=== PATIENT | female | born 1955 | race Asian ===

== ENCOUNTER 2017-10-02 22:27 | Emergency (ER) | payer BC ==
[2017-10-02 22:32] VITALS: RESP 18
[2017-10-02] MEDS ORDERED: SODIUM CHLORIDE 0.9% 500 ML IV STA (22:47)
[2017-10-02] MEDS ORDERED: MORPHINE SULFATE/PF 10MG/10ML VL IVP STA (22:47)
[2017-10-02] MEDS ORDERED: ONDANSETRON 4 MG/2 ML VIAL IVP STA (22:47)
--- NOTE | 2017-10-02 22:52 | ED ---
Abdominal Pain HPI - General Chief Complaint: Abdominal Pain Stated Complaint: Abd pain Time Seen by Provider: 10/02/17 22:36 Source: patient Mode of arrival: ambulatory Limitations: no limitations - History of Present Illness Initial Comments: 61-year-old female patient presents to the emergency department today for evaluation of upper abdominal pain that started earlier today. Patient states pain has been worsening as the day has progressed. She states the pain is a sharp cramping like pain that does radiate into her back. She denies any nausea or vomiting with this. She denies any constipation or diarrhea. Patient states she did have a bowel movement this morning that was normal for her. Patient denies any history of similar symptoms. Denies any history of abdominal surgeries. States that she does have a history of diabetes and does take oral medication for this. She denies any fevers or chills. Patient denies any recent rash, shortness breath, chest pain, numbness, tingling, dizziness, weakness, hematuria, dysuria, urinary urgency, urinary frequency, headache, visual changes, or any other complaints. - Related Data Home Medications Medication Instructions Recorded Confirmed Calcium Carbonate [Calcium] 600 mg PO DAILY 10/02/17 10/02/17 Cholecalciferol [Vitamin D3] 1,000 unit PO DAILY 10/02/17 10/02/17 Glimepiride [Amaryl] 2 mg PO AC-[id number] 10/02/17 10/02/17 Insulin Detemir [Levemir Flextouch] 62 units SQ HS 10/02/17 10/02/17 Lisinopril [Zestril] 5 mg PO DAILY 10/02/17 10/02/17 Multivitamins, Thera [Multivitamin 1 tab PO DAILY 10/02/17 10/02/17 (formulary)] Simvastatin [Zocor] 40 mg PO DAILY 10/02/17 10/02/17 sitaGLIPtin [Januvia] 50 mg PO DAILY 10/02/17 10/02/17 Allergies Allergy/AdvReac Type Severity Reaction Status Date / Time No Known Allergies Allergy Verified 10/02/17 23:12 Review of Systems ROS Statement: Those systems with pertinent positive or pertinent negative responses have been documented in the HPI. ROS Other: All systems not noted in ROS Statement are negative. Past Medical History Past Medical History: Diabetes Mellitus, Hyperlipidemia, Hypertension Additional Past Medical History / Comment(s): menigitis History of Any Multi-Drug Resistant Organisms: None Reported Past Surgical History: No Surgical Hx Reported Past Psychological History: No Psychological Hx Reported Smoking Status: Former smoker Past Alcohol Use History: None Reported Past Drug Use History: None Reported General Exam Limitations: no limitations General appearance: alert, in no apparent distress, other (This is a well- developed, well-nourished adult female patient in no acute distress. Vital signs upon presentation are temperature 97.0F, pulse 68, respirations 18, blood pressure 196/84, pulse ox 98% on room air.) Eye exam: Present: normal appearance, PERRL, EOMI. Absent: scleral icterus, conjunctival injection, periorbital swelling ENT exam: Present: normal exam, normal oropharynx, mucous membranes moist Respiratory exam: Present: normal lung sounds bilaterally. Absent: respiratory distress, wheezes, rales, rhonchi, stridor Cardiovascular Exam: Present: regular rate, normal rhythm, normal heart sounds. Absent: systolic murmur, diastolic murmur, rubs, gallop, clicks GI/Abdominal exam: Present: soft, tenderness (Upper abdominal tenderness.), normal bowel sounds. Absent: distended, guarding, rebound, rigid Neurological exam: Present: alert, oriented X3, CN II-XII intact Psychiatric exam: Present: normal affect, normal mood Skin exam: Present: warm, dry, intact, normal color. Absent: rash Course Vital Signs 10/02/17 22:30 Temperature 97 F L Pulse Rate 68 Respiratory 18 Rate Blood Pressure 196/84 O2 Sat by Pulse 98 Oximetry Medical Decision Making - Medical Decision Making 61-year-old female patient presented to the emergency department today for evaluation of upper abdominal pain that radiated into her back. Physical examination is unremarkable. Patient had some mild upper abdominal tenderness. Labs reviewed and are unremarkable. EKG showed normal sinus rhythm. Abdominal x-ray showed overall nonobstructive bowel gas pattern. CT the abdomen and pelvis with contrast was obtained and showed a small calcified gallstone and fatty infiltration of the liver but no other acute intra- abdominal processes. Patient is feeling much better upon reevaluation. She denies any current pain. We did discuss all results.We did discuss follow-up with surgery. Return parameters discussed in detail. She verbalizes understanding and agrees the plan. - Lab Data Result diagrams: 10/02/17 23:02 10/02/17 23:02 Lab Results 10/02/17 10/02/17 10/03/17 Range/Units 23:02 23:02 00:01 WBC 10.5 (3.8-10.6) k/uL RBC 4.48 (3.80-5.40) m/uL Hgb 13.7 (11.4-16.0) gm/dL Hct 39.7 (34.0-46.0) % MCV 88.6 (80.0-100.0) fL MCH 30.5 (25.0-35.0) pg MCHC 34.5 (31.0-37.0) g/dL RDW 12.2 (11.5-15.5) % Plt Count 177 (150-450) k/uL Neutrophils % 62 % Lymphocytes % 29 % Monocytes % 6 % Eosinophils % 2 % Basophils % 0 % Neutrophils # 6.5 (1.3-7.7) k/uL Lymphocytes # 3.0 (1.0-4.8) k/uL Monocytes # 0.6 (0-1.0) k/uL Eosinophils # 0.2 (0-0.7) k/uL Basophils # 0.0 (0-0.2) k/uL Sodium 143 (137-145) mmol/L Potassium 4.0 (3.5-5.1) mmol/L Chloride 104 (98-107) mmol/L Carbon Dioxide 25 (22-30) mmol/L Anion Gap 14 mmol/L BUN 27 H (7-17) mg/dL Creatinine 0.50 L (0.52-1.04) mg/dL Est GFR (CKD-EPI)AfAm >90 (>60 ml/min/1.73 sqM) Est GFR (CKD-EPI)NonAf >90 (>60 ml/min/1.73 sqM) Glucose 134 H (74-99) mg/dL Calcium 9.9 (8.4-10.2) mg/dL Total Bilirubin 0.6 (0.2-1.3) mg/dL AST 23 (14-36) U/L ALT 33 (9-52) U/L Alkaline Phosphatase 92 (38-126) U/L Total Protein 7.1 (6.3-8.2) g/dL Albumin 4.3 (3.5-5.0) g/dL Amylase 77 (30-110) U/L Lipase 143 (23-300) U/L Urine Color Yellow Urine Appearance Clear (Clear) Urine pH 5.5 (5.0-8.0) Ur Specific [place] 1.020 (1.001-1.035) Urine Protein Negative (Negative) Urine Glucose (UA) 1+ H (Negative) Urine Ketones Negative (Negative) Urine Blood Negative (Negative) Urine Nitrite Negative (Negative) Urine Bilirubin Negative (Negative) Urine Urobilinogen <2.0 (<2.0) mg/dL Ur Leukocyte Esterase Trace H (Negative) Urine RBC <1 (0-5) /hpf Urine WBC 4 (0-5) /hpf Urine Mucus Rare H (None) /hpf - EKG Data -: EKG Interpreted by Id EKG Comments: EKG obtained at 2304 shows normal sinus rhythm with a left axis deviation. Ventricular rate is 68, OH interval 150, QRS duration 82, QTc 412, QTC 438. - Radiology Data Radiology results: report reviewed, image reviewed Two-view x-ray of the abdomen shows no sign of intestinal obstruction or pneumoperitoneum. Fecal pattern is normal. Lung bases are clear. There is no pathologic calcifications over the kidneys. Impression by Dr. Chi shows nonacute abdomen. CT of the abdomen and pelvis with contrast was obtained. Report was reviewed in its entirety. Impression by Dr. Chi shows no sign of appendicitis. No renal stone or obstruction. Small calcified gallstone. Disposition Clinical Impression: Gallstone, Upper abdominal pain Disposition: HOME SELF-CARE Condition: Good Instructions: Gallstones (ED), Abdominal Pain (ED) Additional Instructions: Follow-up with surgeon for further evaluation. Follow-up through primary care physician for recheck in 1-2 days. Return here immediately for any new, worsening, or concerning symptoms. Referrals: Chi Gutierrez MD [Primary Care Provider] - 1-2 days Miladis Medrano DO [Doctor of Osteopathic Medicine] - 1-2 days Time of Disposition: 00:53
[2017-10-02 23:15] LABS: Basophils % (A) 0 %; Eosinophils # (A) 0.2 k/uL (0-0.7); Eosinophils % (A) 2 %; HCT 39.7 % (34.0-46.0); HGB 13.7 gm/dL (11.4-16.0); Lymphocytes % (A) 29 %; MCH 30.5 pg (25.0-35.0); MCHC 34.5 g/dL (31.0-37.0); MCV 88.6 fL (80.0-100.0); Mean Platelet Volume 7.3; Monocytes # (A) 0.6 k/uL (0-1.0); Monocytes % (A) 6 %; Neutrophils # (A) 6.5 k/uL (1.3-7.7); Neutrophils % (A) 62 %; Platelet Count 177 k/uL (150-450); RBC 4.48 m/uL (3.80-5.40); RDW 12.2 % (11.5-15.5); WBC 10.5 k/uL (3.8-10.6)
[2017-10-02 23:23] LABS: ALT 33 U/L (9-52); AST 23 U/L (14-36); Albumin 4.3 g/dL (3.5-5.0); Alkaline Phosphatase 92 U/L (38-126); Amylase 77 U/L (30-110); Anion Gap 14 mmol/L; Blood Urea Nitrogen 27 mg/dL (7-17); Calcium 9.9 mg/dL (8.4-10.2); Carbon Dioxide 25 mmol/L (22-30); Chloride 104 mmol/L (98-107); Glucose 134 mg/dL (74-99); Lipase 143 U/L (23-300); Sodium 143 mmol/L (137-145); Total Bilirubin 0.6 mg/dL (0.2-1.3); Total Protein 7.1 g/dL (6.3-8.2)
[2017-10-02] MEDS ORDERED: RX INFO: IV CONTRAST WAS GIVEN 1 EACH MISC MISCELLANE PRN (23:59)
--- NOTE | 2017-10-03 00:03 | XR ---
EXAMINATION TYPE: XR KUB DATE OF EXAM: 10/02/2017 COMPARISON: NONE HISTORY: Abdominal pain TECHNIQUE: 2 views FINDINGS: There is no sign of intestinal obstruction or pneumoperitoneum. Fecal pattern is normal. Giuliana ng bases are clear. There are no pathologic calcifications over the kidneys. IMPRESSION: Nonacute abdomen.
--- NOTE | 2017-10-03 00:42 | CT ---
EXAMINATION TYPE: CT abdomen pelvis w con DATE OF EXAM: 10/03/2017 COMPARISON: NONE HISTORY: abdominal pain CT DLP: 455.80 mGycm Automated exposure control for dose reduction was used. TECHNIQUE: Helical acquisition of images was performed from the lung bases through the pelvis. CONTRAST: Performed without Oral Contrast and with IV Contrast, patient injected with 100 mL of Isovue 300. FINDINGS: Lung bases are clear. There is no pleural effusion. Heart size is normal. There is mild decreased density in the liver consistent with some mild fatty infiltration. Gallbladde r shows a single 7 mm calcified gallstone. Bile ducts are not dilated. Gallbladder measures 3.5 cm in diameter. Spleen appears normal. There is no pancreatic mass. There is no adrenal mass. Kidneys show satisfactory contrast opacification. There is no hydronephrosi s. There is air-filled appendix. There is no retroperitoneal adenopathy. There is no ascites. Uterus is retroverted. There are varicose veins in the left and right adnexal region. Bladder distends smoothly. There is no evidence of a pelvic mass. I see no intestinal wall thickening. There are no dilated loops. IMPRESSION: NO SIGN OF APPENDICITIS. NO RENAL STONE OR OBSTRUCTION. SMALL CALCIFIED GALLSTONE. BILATERAL OVARIAN VEIN VARICOSITIES. MILD FATTY INFILTRATION OF THE LIVER.
[2017-10-03 00:47] LABS: Appearance,Urine Clear (Clear); Bilirubin,Urine Negative (Negative); Blood,Urine Negative (Negative); Color,Urine Yellow; Glucose,Urine (UA) 1+ (Negative); Ketones,Urine Negative (Negative); Leukocyte Esterase,Urine Trace (Negative); Mucus,Urine Rare /hpf; Nitrite,Urine Negative (Negative); PH, Urine 5.5 (5.0-8.0); Protein,Urine Negative (Negative); RBC,Urine <1 /hpf (0-5); Urobilinogen,Urine <2.0 mg/dL (<2.0); WBC,Urine 4 /hpf (0-5)
[2017-10-03 01:06] VITALS: BP 157/79; PULSE 73; TEMP 97.1
== END 2017-10-03 01:05 | disposition home or self-care (01) ==
LOC: EC 22:27
DX: K80.20 Calculus of gallbladder without cholecystitis without obstruction (principal); E11.9 Type 2 diabetes mellitus without complications; E78.5 Hyperlipidemia, unspecified; I10 Essential (primary) hypertension; Z87.891 Personal history of nicotine dependence; Z79.4 Long term (current) use of insulin; Z79.899 Other long term (current) drug therapy
CPT/HCPCS: 36415; 93005; 80053; 82150; 83690; 85025; 74018; 99284; 96374; 96375; 96361; J2405; J2270; 74177; 81001

== ENCOUNTER 2017-11-06 06:56 | Day surgery (SDC) | payer BC ==
[2017-11-05 12:23] VITALS: BMI 23.8
[~2017-11-06 06:56] MED LIST: DEXAMETHASONE SOD PHOSPHATE 10 MG/ML 1 ML VIAL IV ONE; HEPARIN SODIUM,PORCINE 5,000 UNIT/ML 1 ML VIAL SQ ONE; LACTATED RINGERS 1,000 ML IV SCH; LIDOCAINE 1% 20 ML VIAL (10MG/ML) FOR IV START INTRADERMA PRN; MORPHINE SULFATE 2 MG/ML SYRINGE IV PRN; ONDANSETRON ODT 4 MG TAB PO ONE; SCOPOLAMINE 1.5MG/72HR PATCH TRANSDERM ONE; ceFAZolin IN SWFI 2 GM/20 ML SYRINGE IVP ONE
[2017-11-06] MEDS ORDERED: ONDANSETRON 4 MG/2 ML VIAL IVP ONE (07:50)
--- NOTE | 2017-11-06 08:04 | P.GSHP ---
History of Present Illness H&P Date: 11/06/17 Chief Complaint: Right upper quadrant pain This a 61-year-old female referred from Dr. Gutierrez. Patient had complaints of right quadrant pain. Her recent ultrasound shows evidence of cholelithiasis. She presents today for laparoscopic cholecystectomy. Past Medical History Past Medical History: Diabetes Mellitus, Hyperlipidemia, Hypertension Additional Past Medical History / Comment(s): menigitis History of Any Multi-Drug Resistant Organisms: None Reported Past Surgical History: No Surgical Hx Reported Past Anesthesia/Blood Transfusion Reactions: No Reported Reaction Additional Past Anesthesia/Blood Transfusion Reaction / Comment(s): FIRST ANESTHETIC Past Psychological History: No Psychological Hx Reported Smoking Status: Former smoker Past Alcohol Use History: None Reported Additional Past Alcohol Use History / Comment(s): SMOKED A TEENAGER SMOKED 5 YEARS LESS THAN PACK PER WEEK Past Drug Use History: None Reported - Past Family History Mother Family Medical History: Cancer Father Family Medical History: Cancer Medications and Allergies Home Medications Medication Instructions Recorded Confirmed Type Calcium Carbonate [Calcium] 600 mg PO DAILY 10/02/17 11/05/17 History Cholecalciferol [Vitamin D3] 1,000 unit PO DAILY 10/02/17 11/05/17 History Insulin Detemir [Levemir Flextouch] 62 units SQ HS 10/02/17 11/05/17 History Lisinopril [Zestril] 5 mg PO DAILY 10/02/17 11/05/17 History Multivitamins, Thera [Multivitamin 1 tab PO DAILY 10/02/17 11/05/17 History (formulary)] Simvastatin [Zocor] 40 mg PO DAILY 10/02/17 11/05/17 History sitaGLIPtin [Januvia] 100 mg PO DAILY 10/02/17 11/05/17 History Empagliflozin [Jardiance] 10 mg PO DAILY 11/05/17 11/05/17 History Ezetimibe 10 mg PO DAILY 11/05/17 11/05/17 History Allergies Allergy/AdvReac Type Severity Reaction Status Date / Time No Known Allergies Allergy Verified 11/05/17 12:15 Surgical - Exam - General well developed, no distress - Eyes PERRL - ENT normal pinna - Neck no masses - Respiratory normal expansion - Cardiovascular Rhythm: regular - Abdomen Abdomen: soft, non tender Assessment and Plan Assessment: Chronic cholecystitis Cholelithiasis We'll perform laparoscopic cholecystectomy.
[2017-11-06 08:13] LABS: Glucose,Whole Blood 120 mg/dL (75-99)
[2017-11-06] MEDS ORDERED: NEOSTIGMINE 1 MG/ML 10 ML VIAL ONE (08:14)
[2017-11-06] MEDS ORDERED: KETOROLAC 30 MG/ML 1 ML VIAL ONE (08:14)
[2017-11-06] MEDS ORDERED: fentaNYL (PF) 50 MCG/ML 2 ML AMP ONE (08:14)
[2017-11-06] MEDS ORDERED: SUCCINYLCHOLINE CHLORIDE 100 MG/5 ML SYR IV ONE (08:14)
[2017-11-06] MEDS ORDERED: ROCURONIUM BROMIDE 10 MG/ML 10 ML VIAL IV ONE (08:14)
[2017-11-06] MEDS ORDERED: MIDAZOLAM 2 MG/2 ML VIAL ONE (08:14)
[2017-11-06] MEDS ORDERED: GLYCOPYRROLATE 0.2 MG/ML 2 ML VIAL ONE (08:14)
[2017-11-06] MEDS ORDERED: PROPOFOL 10 MG/ML 20 ML VIAL IV ONE (08:14)
[2017-11-06] MEDS ORDERED: LIDOCAINE 1% INJ 10MG/ML (20 ML MDV) ONE (08:14)
[2017-11-06] MEDS ORDERED: BUPIVACAINE (PF) 0.25% 30 ML VIAL SQ ONE (08:36)
[2017-11-06] MEDS ORDERED: LACTATED RINGERS 1,000 ML IV ONE (08:50)
--- NOTE | 2017-11-06 08:54 | P.OP ---
Date of Procedure: 11/06/17 Preoperative Diagnosis: Cholecystitis Postoperative Diagnosis: Cholecystitis Procedure(s) Performed: Laparoscopic cholecystectomy Anesthesia: DELBERT Surgeon: Marvin Whitten Estimated Blood Loss (ml): 5 Pathology: other (Gallbladder) Condition: stable Disposition: PACU Description of Procedure: The patient was placed on the operating table. The patient received a general endotracheal tube anesthesia. The patients abdomen was prepped and draped in the usual sterile fashion. Through an infraumbilical stab incision, the fascia of the anterior abdominal wall was grasped with a pair of Kochers and then the Veress needle was placed in the peritoneal cavity. Position of the Veress needle was confirmed with positive drop test. The abdomen was then insufflated. After adequate insufflation, the 10 mm trocar was placed in the peritoneal cavity. Following this the laparoscope was placed in the peritoneal cavity. The patient was placed in the head-up, right side up position and then a 5 mm trocar was placed in the right lateral and right subcostal position under direct visualization. A 8 mm trocar was placed in the epigastric position. The gallbladder was grasped in the fundus and infundibulum. Traction on the gallbladder was placed in the lateral and the cephalad positions. The triangle of Calot was visualized.. The cystic duct was bluntly dissected until the union of the cystic duct and common bile duct was seen. The cystic duct was then divided and sealed with the Harmonic scissors. A PDS Endoloop was then placed throughout the cystic duct stump. The cystic artery divided and sealed with the Harmonic scissors. The gallbladder was then removed from the liver bed using Harmonic scissors. The gallbladder was then extracted through the epigastric port site. Operative field was checked for any bleeding spots and Harmonic scissors was used to coagulate the liver bed. The abdomen was irrigated. The trocars were removed. The skin was closed using interrupted 3-0 Vicryl suture. Dermabond dressing were applied. The patient tolerated the procedure well.
[2017-11-06 09:17] VITALS: TEMP 96.8
[2017-11-06 09:38] LABS: Glucose,Whole Blood 113 mg/dL (75-99)
[2017-11-06 10:18] VITALS: RESP 16
[2017-11-06 11:14] VITALS: BP 132/71; PULSE 68
== END 2017-11-06 11:55 | disposition home or self-care (01) ==
LOC: OR 06:56
PROVIDERS: ATTEND Surgery
DX: K80.10 Calculus of gallbladder with chronic cholecystitis without obstruction (principal); E11.9 Type 2 diabetes mellitus without complications; E78.5 Hyperlipidemia, unspecified; I10 Essential (primary) hypertension; Z79.4 Long term (current) use of insulin; Z79.899 Other long term (current) drug therapy; Z87.891 Personal history of nicotine dependence
CPT/HCPCS: 88304; 47562; J2250; J1644; J1100; J2710; J2405; J2001; J3010; J1885; J0330; J2704; J0690

== ENCOUNTER → 2020-09-07 | Outpatient (CLI) | payer MEDICARE ==
--- NOTE | 2020-09-07 17:29 | BD ---
EXAMINATION TYPE: Axial Bone Density DATE OF EXAM: 09/07/2020 COMPARISON: 08/14/2009 CLINICAL HISTORY: Postmenopausal screening Height: 60.5 Weight: 133.6 FRAX RISK QUESTIONS: Alcohol (3 or more units per day): no Family History (Parent hip fracture): no Glucocorticoids (More than 3mos): no (Ex: prednisone, prednisolone, methylprednisolone, dexamethasone, and hydrocortisone). History of Fracture in Adulthood: yes Secondary Osteoporosis: 1. Type 1 Diabetes: no 2. Hyperthyroidism: no 3. Menopause before 45: no 4. Malnutrition: no 5. Chronic liver disease: no Rheumatoid Arthritis: no Current Tobacco Use: no RISK FACTORS HISTORY OF: Surgery to Spine/Hip(right/left)/Wrist (right/left): no Family History of Osteoporosis: no Active: yes Diet low in dairy products/other sources of calcium: yes Postmenopausal woman: age 58 Lost more than 2 inches in height since high school: no MEDICATIONS: scanned into pacs Additional History: EXAM MEASUREMENTS: Bone mineral densitometry was performed using the [employer] System. Bone mineral density as measured about the Lumbar spine is: ----- L1-L4(G/cm2): 1.025 T Score Values are as follows: ----- L2: -2.2 ----- L3: -1.0 ----- L4: -0.9 ----- L1-L4: -1.3 Bone mineral density has: increased 4.9 % since study of: 06.13.2010 Bone mineral density about the R hip (g/cm2): 0.773 Bone mineral density about the L hip (g/cm2): 0.873 T Score values are as follows: -----R Neck: -1.9 -----L Neck: -1.2 -----R Total: -1.3 -----L Total: -0.9 Bone mineral density has: decreased -3.6 % since study of: 06.13.2010 IMPRESSION: Osteopenia (T Score between -2.5 and -1). There is slightly increased risk of fracture and the patient may be considered for treatment. Re-Screen 2-5 years. NOTE: T-SCORE=SD OF THE YOUNG ADULT MEAN.
== END ==
LOC: RADBDWWP 07:58
PROVIDERS: ATTEND Family Medicine
DX: Z13.820 Encounter for screening for osteoporosis (principal); Z78.0 Asymptomatic menopausal state
CPT/HCPCS: 77080

== ENCOUNTER → 2023-06-26 | Outpatient (CLI) | payer MEDICARE, OTHER ==
--- NOTE | 2023-06-26 08:08 | US ---
EXAMINATION TYPE: US carotid duplex BILAT DATE OF EXAM: 06/26/2023 COMPARISON: NONE CLINICAL INDICATION: Female, 67 years old with history of I65.29 OCCLUSION AND STENOSIS OF UNSPECIFIE D CAROT; Prior smoker, hypertension, hyperlipidemia, diabetes. TECHNIQUE: Carotid duplex ultrasound examination. Indirect Doppler criteria was utilized. FINDINGS: EXAM MEASUREMENTS: RIGHT: Peak Systolic Velocity (PSV) cm/sec ----- Right CCA: 83.1 ----- Right ICA: 91.9 ----- Right ECA: 81.2 ICA/CCA ratio: 1.1 RIGHT: End Diastole cm/sec ----- Right CCA: 22.6 ----- Right ICA: 39.1 ----- Right ECA: 0.0 LEFT: Peak Systolic Velocity (PSV) cm/sec ----- Left CCA: 61.6 ----- Left ICA: Possible minimal flow seen, bulb measures 29.5 ----- Left ECA: 109.5 ICA/CCA ratio: 0.5- bulb as measurement LEFT: End Diastole cm/sec ----- Left CCA: 0.0 ----- Left ICA: 0.0 ----- Left ECA: 9.8 VERTEBRALS (direction of flow): Right Vertebral: Antegrade Left Vertebral: Antegrade Rhythm: Normal FAMILY REUNIFICATION SPECIALIST NOTES: Possible minimal blood flow seen after left bulb in left ICA. Minimal arterial signal seen within left ICA versus artifact from other artery. IMPRESSION: High-grade stenosis left proximal ICA difficult to exclude. CTA recommended for further evaluation. Criteria for Assigning % of Stenosis / Diameter reduction (Estimation based on the indirect measurements of the internal carotid artery velocities (ICA PSV). 1. Normal (no stenosis)=ICA PSV < 125 cm/s: ratio < 2.0: ICA EDV<40 cm/s. 2. Less than 50% stenosis=ICA PSV < 125 cm/s: ratio < 2.0: ICA EDV<40 cm/s. 3. 50 to 69% stenosis=ICA PSV of 125 to 230 cm/s: ration 2.0 ? 4.0: ICA EDV 40-100 cm/s. 4. Greater than 70% stenosis to near occlusion= ICA PSV > 230 cm/s: ratio > 4.0: ICA EDV > 100 cm/s. 5. Near occlusion= ICA PSV velocities may be low or undetectable: variable ratio and ICA EDV. 6. Total occlusion=unable to detect flow.
[2023-06-26 09:18] LABS: African American GFR (CKD) >90 (>60 ml/min/1.73 sqM); Blood Urea Nitrogen 25 mg/dL (7-17); Non-African American GFR(CKD) >90 (>60 ml/min/1.73 sqM)
--- NOTE | 2023-06-26 11:49 | CT ---
EXAMINATION TYPE: CT angio head neck DATE OF EXAM: 06/26/2023 COMPARISON: Carotid ultrasound 06/26/2023 HISTORY: 67-year-old female [id number] Carotid stenosis. TECHNIQUE: Contiguous axial scanning of the head and neck performed with IV Contrast, patient injecte d with 65ml mL of Isovue 370. Coronal and sagittal MIP reconstructions performed. CT DLP: 1287.9 mGycm Automated exposure control for dose reduction was used. FINDINGS: NECK: Minimal emphysematous change visualized upper lungs. There is asymmetric enlargement of the left lobe of the thyroid gland, possible underlying nodule that could measure up to 2.5 cm. Dedicated thyroid ultrasound recommended to further evaluate. Mild atherosclerotic arch calcifications. Conventional arch was a branching anatomy. Mild stenosis proximal left subclavian artery. The vertebral arteries are codominant and patent throu ghout their course. NASCET criteria was utilized. The right common and right internal carotid arteries are widely patent. The left common carotid artery is patent. The left carotid bulb is patent. However, there is subtotal occlusion proximal left ICA just above th e level of the carotid bulb which short segment string sign and eventual loss of enhancement at the m id ICA. HEAD: The bilateral vertebral and basilar arteries are patent as is the remainder of the posterior circulat ion. The dural venous sinuses are patent. Right ICA is patent but with moderate atherosclerotic calcifications and moderate stenosis cavernous segment right ICA and moderate stenosis supraclinoid right ICA. Early bifurcation of the right MCA. There is reconstitution of flow within the left-sided system at the level of the carotid terminus pro bably from retrograde flow from the anterior communicating artery. No aneurysmal change is seen. IMPRESSION: NECK: 1. SUBTOTAL OCCLUSION LEFT ICA JUST ABOVE THE LEVEL OF THE CAROTID BULB. THERE IS STRING SIGN FOR A S HORT SPAN FOLLOWED BY COMPLETE LOSS OF ENHANCEMENT AT THE MID ICA. 2. MILD ATHEROSCLEROTIC STENOSIS PROXIMAL LEFT SUBCLAVIAN ARTERY. 3. NODULAR AND ENLARGED LEFT LOBE OF THE THYROID GLAND. DEDICATED THYROID ULTRASOUND TO FURTHER EVALU ATE. HEAD: 4. RECONSTITUTION OF FLOW IN THE LEFT ICA AT THE LEVEL OF THE CAROTID TERMINUS. PROBABLY FROM RETROGR RAIMUNDO FLOW FROM THE ANTERIOR COMMUNICATING ARTERY. 5. ATHEROSCLEROTIC CALCIFICATIONS RIGHT CAROTID SIPHON WITH MODERATE STENOSIS CAVERNOUS SEGMENT RIGHT ICA AND SUPRACLINOID RIGHT ICA. 6. NO ANEURYSMAL CHANGE IS SEEN.
== END | disposition home or self-care (01) ==
LOC: RADUSWWP 07:32
PROVIDERS: ATTEND Family Medicine
DX: I65.23 Occlusion and stenosis of bilateral carotid arteries (principal); I10 Essential (primary) hypertension; E78.5 Hyperlipidemia, unspecified; I77.1 Stricture of artery
CPT/HCPCS: 82565; 84520; 93880; 70496; 70498; Q9967

== ENCOUNTER → 2023-08-07 | Outpatient (CLI) | payer MEDICARE, OTHER ==
--- NOTE | 2023-08-07 10:03 | US ---
EXAMINATION TYPE: US thyroid st tissue head/neck DATE OF EXAM: 08/07/2023 COMPARISON: CTA 06/26/23 CLINICAL INDICATION: Female, 67 years old with history of E04.1 NONTOXIC SINGLE THYROID NODULE; GLAND SIZE: Right Lobe: 3.5 x 1.2 x 0.8 cm Overall Parenchyma: homogeneous Left Lobe: 5.5 x 1.9 x 1.2 cm Overall Parenchyma: heterogeneous Isthmus Thickness: 0.39 cm NODULES RIGHT: # of nodules measured on right: 0 LEFT: # of nodules measured on left: 2 1. 1.6 X 1.3 x 1.1 cm, upper , solid or almost completely solid, isoechoic nodule, which is wider t oconnor tall, with smooth margins, without echogenic foci. 2. 1.8 X 1.7 x 1.6 cm, lower , solid or almost completely solid, isoechoic nodule, which is wider than tall, with smooth margins, without echogenic foci. ISTHMUS: # of nodules measured in the isthmus: 0 Bilateral neck scanned, no evidence of lymphadenopathy. Large calcifications noted left thyroid IMPRESSION: TR3. Mildly Suspicious: FNA if ? 2.5 cm; Follow if ? 1.5 cm at 1, 3, and 5 y 2017 ACR TI-RADS LEVEL: TR3 *Highest TI-RADS level nodule reported
== END | disposition home or self-care (01) ==
LOC: RADUSWWP 09:14
PROVIDERS: ATTEND Family Medicine
DX: E04.2 Nontoxic multinodular goiter (principal)
CPT/HCPCS: 76536

== ENCOUNTER 2023-09-20 07:16 | Emergency (ER) | payer MEDICARE, OTHER ==
--- NOTE | 2023-09-20 07:51 | ED ---
General Adult HPI - General Chief complaint: Nausea/Vomiting/Diarrhea Stated complaint: Diarrhea Time Seen by Provider: 09/20/23 07:30 Source: patient, RN notes reviewed Mode of arrival: ambulatory Limitations: no limitations - History of Present Illness Initial comments: Patient is a pleasant 67-year-old female present to the emergency department with concerns for vomiting and diarrhea. Onset of symptoms was 3 to 4 days ago. Patient was vomiting a couple times per day, none today. Patient did take ODT Zofran. Patient is having diarrhea up to 2 or 3 times daily. Patient feels a little bit dehydrated and somewhat generally weak. Patient had some abdominal discomfort however none for the past couple days. No fever. - Related Data Home Medications Medication Instructions Recorded Confirmed Calcium Carbonate [Calcium] 600 mg PO DAILY 10/02/17 11/05/17 Cholecalciferol [Vitamin D3] 1,000 unit PO DAILY 10/02/17 11/05/17 Insulin Detemir [Levemir Flextouch] 62 units SQ HS 10/02/17 11/05/17 Multivitamins, Thera [Multivitamin 1 tab PO DAILY 10/02/17 11/05/17 (formulary)] Simvastatin [Zocor] 40 mg PO DAILY 10/02/17 11/05/17 lisinopriL [Zestril] 5 mg PO DAILY 10/02/17 11/05/17 sitaGLIPtin [Januvia] 100 mg PO DAILY 10/02/17 11/05/17 Empagliflozin [Jardiance] 10 mg PO DAILY 11/05/17 11/05/17 Ezetimibe 10 mg PO DAILY 11/05/17 11/05/17 Previous Rx's Medication Instructions Recorded Docusate [Colace] 100 mg PO BID #20 capsule 11/06/17 HYDROcodone/APAP 7.5-325MG [[place] 1 each PO Q4H PRN #15 tab 11/06/17 7.5] HYDROcodone/APAP 7.5-325MG [[place] 1 each PO Q4H PRN #20 tab 11/06/17 7.5] HYDROcodone/APAP 7.5-325MG [[place] 1 each PO Q4H PRN #30 tab 11/06/17 7.5] Ondansetron Odt [Zofran Odt] 4 mg PO Q8HR PRN #10 tab 09/20/23 Allergies Allergy/AdvReac Type Severity Reaction Status Date / Time No Known Allergies Allergy Verified 11/05/17 12:15 Review of Systems ROS Statement: Those systems with pertinent positive or pertinent negative responses have been documented in the HPI. ROS Other: All systems not noted in ROS Statement are negative. Constitutional: Denies: fever Eyes: Denies: eye pain ENT: Denies: ear pain Respiratory: Denies: dyspnea Cardiovascular: Denies: chest pain Gastrointestinal: Reports: as per HPI, nausea, vomiting, diarrhea Genitourinary: Denies: dysuria Musculoskeletal: Denies: back pain Skin: Denies: rash Past Medical History Past Medical History: Diabetes Mellitus, Hyperlipidemia, Hypertension Additional Past Medical History / Comment(s): menigitis History of Any Multi-Drug Resistant Organisms: None Reported Past Surgical History: No Surgical Hx Reported Past Anesthesia/Blood Transfusion Reactions: No Reported Reaction Additional Past Anesthesia/Blood Transfusion Reaction / Comment(s): FIRST ANESTHETIC Past Psychological History: No Psychological Hx Reported Past Alcohol Use History: None Reported Past Drug Use History: None Reported - Past Family History Mother Family Medical History: Cancer Father Family Medical History: Cancer General Exam Limitations: no limitations General appearance: alert, in no apparent distress Head exam: Present: normocephalic Eye exam: Present: normal appearance Neck exam: Present: normal inspection Respiratory exam: Present: normal lung sounds bilaterally Cardiovascular Exam: Present: regular rate, normal rhythm GI/Abdominal exam: Present: soft. Absent: distended, tenderness, pulsatile mass Extremities exam: Present: normal inspection Neurological exam: Present: alert Psychiatric exam: Present: normal affect, normal mood Skin exam: Present: normal color Course Vital Signs 09/20/23 07:18 Temperature 97.8 F Pulse Rate 72 Respiratory 18 Rate Blood Pressure 156/76 O2 Sat by Pulse 96 Oximetry Medical Decision Making - Medical Decision Making Was pt. sent in by a medical professional or institution (, PA, SENIOR PIPING DESIGNER, urgent care, hospital, or prison...) When possible be specific @ -No Did you speak to anyone other than the patient for history (EMS, parent, family, police, friend...)? What history was obtained from this source @ -Male accompanying patient helps provide history including onset of symptoms Did you review nursing and triage notes (agree or disagree)? Why? @ -I reviewed and agree with nursing and triage notes Were old charts reviewed (outside hosp., previous admission, EMS record, old EKG, old radiological studies, urgent care reports/EKG's, prison records)? Report findings @ -No old charts were reviewed Differential Diagnosis (chest pain, altered mental status, abdominal pain women, abdominal pain men, vaginal bleeding, weakness, fever, dyspnea, syncope, headache, dizziness, GI bleed, back pain, seizure, CVA, palpatations, mental health, musculoskeletal)? @ -Differential Abdominal Pain Women: Appendicitis, Cholecystitis, diverticulosis, ischemic bowel, pancreatitis, hepatitis, UTI, gastroenteritis, AAA, incarcerated hernia, bowel obstruction, constipation, inflammatory bowel, hepatitis, peptic ulcer disease, splenic infarction, perforated viscus, vulvitis, ovarian torsion, PID, kidney stone, placenta abruption, this is not meant to be an all-inclusive list EKG interpreted by me (3pts min.). @ -As above X-rays interpreted by me (1pt min.). @ -None done CT interpreted by me (1pt min.). @ -None done U/S interpreted by me (1pt. min.). @ -None done What testing was considered but not performed or refused? (CT, X-rays, U/S, labs)? Why? @ -None What meds were considered but not given or refused? Why? @ -None Did you discuss the management of the patient with other professionals (professionals i.e. , PA, SENIOR PIPING DESIGNER, lab, RT, psych nurse, social work coordinator, training representative, teacher, juvenile probation officer, case aide)? Give summary @ -No Was smoking cessation discussed for >3mins.? @ -No Was critical care preformed (if so, how long)? @ -No Were there social determinants of health that impacted care today? How? (Homel essness, low income, unemployed, alcoholism, drug addiction, transportation, low edu. Level, literacy, decrease access to med. care, [place] [facility], rehab)? @ -No Was there de-escalation of care discussed even if they declined (Discuss DNR or withdrawal of care, Hospice)? DNR status @ -No What co-morbidities impacted this encounter? (DM, HTN, Smoking, COPD, CAD, Cancer, CVA, ARF, Chemo, Hep., AIDS, mental health diagnosis, sleep apnea, morbid obesity)? @ -None Was patient admitted / discharged? Hospital course, mention meds given and route, prescriptions, significant lab abnormalities, going to OR and other pertinent info. @ -Patient reevaluated and feeling much better after IV fluids and medication. Patient is comfortable with discharge home and does request prescription for Zofran. Undiagnosed new problem with uncertain prognosis? @ -No Drug Therapy requiring intensive monitoring for toxicity (Heparin, Nitro, Insulin, Cardizem)? @ -No Were any procedures done? @ -No Diagnosis/symptom? @ -Vomiting, diarrhea Acute, or Chronic, or Acute on Chronic? @ -Acute, acute Uncomplicated (without systemic symptoms) or Complicated (systemic symptoms)? @ -Default Side effects of treatment? @ -No Exacerbation, Progression, or Severe Exacerbation? @ -No Poses a threat to life or bodily function? How? (Chest pain, USA, VT, pneumonia, PE, COPD, DKA, ARF, appy, cholecystitis, CVA, Diverticulitis, Homicidal, Suicidal, threat to staff... and all critical care pts) @ -No - Lab Data Result diagrams: 09/20/23 07:58 09/20/23 07:58 Lab Results 09/20/23 09/20/23 09/20/23 Range/Units 07:58 07:58 08:06 WBC 5.5 (3.8-10.6) k/uL RBC 4.82 (3.80-5.40) m/uL Hgb 15.2 (11.4-16.0) gm/dL Hct 46.0 (34.0-46.0) % MCV 95.3 (80.0-100.0) fL MCH 31.5 (25.0-35.0) pg MCHC 33.1 (31.0-37.0) g/dL RDW 12.7 (11.5-15.5) % Plt Count 169 (150-450) k/uL MPV 7.7 Neutrophils % 61 % Lymphocytes % 25 % Monocytes % 9 % Eosinophils % 2 % Basophils % 1 % Neutrophils # 3.3 (1.3-7.7) k/uL Lymphocytes # 1.4 (1.0-4.8) k/uL Monocytes # 0.5 (0-1.0) k/uL Eosinophils # 0.1 (0-0.7) k/uL Basophils # 0.0 (0-0.2) k/uL Sodium 135 L (137-145) mmol/L Potassium 4.5 (3.5-5.1) mmol/L Chloride 106 (98-107) mmol/L Carbon Dioxide 20 L (22-30) mmol/L Anion Gap 9 mmol/L BUN 19 H (7-17) mg/dL Creatinine 0.54 (0.52-1.04) mg/dL Est GFR (CKD-EPI)AfAm >90 (>60 ml/min/1.73 sqM) Est GFR (CKD-EPI)NonAf >90 (>60 ml/min/1.73 sqM) Glucose 112 H (74-99) mg/dL Calcium 8.2 L (8.4-10.2) mg/dL Total Bilirubin 1.0 (0.2-1.3) mg/dL AST 39 H (14-36) U/L ALT 44 H (4-34) U/L Alkaline Phosphatase 73 (38-126) U/L Total Protein 6.2 L (6.3-8.2) g/dL Albumin 3.9 (3.5-5.0) g/dL Amylase 54 (30-110) U/L Lipase 64 (23-300) U/L SARS-CoV-2 (PCR) Not Detected (Not Detectd) Disposition Clinical Impression: Vomiting, Diarrhea Disposition: HOME SELF-CARE Condition: Stable Instructions (If sedation given, give patient instructions): Acute Nausea and Vomiting (ED), Acute Diarrhea (ED) Additional Instructions: Prescription for Zofran. Please do follow-up with primary care physician in the next 1 or 2 days for recheck. Encourage fluids. Return for not tolerating fluids, fevers, pain, worsening symptoms or other concerns. Prescriptions: Ondansetron Odt [Zofran Odt] 4 mg PO Q8HR PRN #10 tab PRN Reason: Nausea Is patient prescribed a controlled substance at d/c from ED?: No Referrals: Julian Ross DO [Primary Care Provider] - 1-2 days Time of Disposition: 09:37
[2023-09-20] MEDS: FAMOTIDINE 20 MG/2 ML VIAL IV STA (08:09)
[2023-09-20] MEDS: SODIUM CHLORIDE 0.9% 1,000 ML IV STA (08:12)
[2023-09-20] MEDS: DICYCLOMINE 10 MG/ML 2 ML AMP IM STA (08:14)
[2023-09-20 08:17] LABS: Basophils % (A) 1 %; Eosinophils # (A) 0.1 k/uL (0-0.7); Eosinophils % (A) 2 %; HGB 15.2 gm/dL (11.4-16.0); Lymphocytes # (A) 1.4 k/uL (1.0-4.8); Lymphocytes % (A) 25 %; MCH 31.5 pg (25.0-35.0); MCHC 33.1 g/dL (31.0-37.0); MCV 95.3 fL (80.0-100.0); Mean Platelet Volume 7.7; Monocytes # (A) 0.5 k/uL (0-1.0); Monocytes % (A) 9 %; Neutrophils # (A) 3.3 k/uL (1.3-7.7); Neutrophils % (A) 61 %; Platelet Count 169 k/uL (150-450); RBC 4.82 m/uL (3.80-5.40); RDW 12.7 % (11.5-15.5); WBC 5.5 k/uL (3.8-10.6)
[2023-09-20 08:29] LABS: ALT 44 U/L (4-34); AST 39 U/L (14-36); African American GFR (CKD) >90 (>60 ml/min/1.73 sqM); Albumin 3.9 g/dL (3.5-5.0); Alkaline Phosphatase 73 U/L (38-126); Amylase 54 U/L (30-110); Anion Gap 9 mmol/L; Blood Urea Nitrogen 19 mg/dL (7-17); Calcium 8.2 mg/dL (8.4-10.2); Carbon Dioxide 20 mmol/L (22-30); Chloride 106 mmol/L (98-107); Glucose 112 mg/dL (74-99); Lipase 64 U/L (23-300); Non-African American GFR(CKD) >90 (>60 ml/min/1.73 sqM); Potassium 4.5 mmol/L (3.5-5.1); Sodium 135 mmol/L (137-145); Total Protein 6.2 g/dL (6.3-8.2)
[2023-09-20 10:30] VITALS: BP 135/71; PULSE 75; RESP 16; TEMP 97.9
== END 2023-09-20 09:52 | disposition home or self-care (01) ==
LOC: EC 07:16
DX: R19.7 Diarrhea, unspecified (principal); R11.2 Nausea with vomiting, unspecified; E11.9 Type 2 diabetes mellitus without complications; I10 Essential (primary) hypertension; Z79.4 Long term (current) use of insulin; Z79.84 Long term (current) use of oral hypoglycemic drugs; Z20.822 Contact with and (suspected) exposure to COVID-19
CPT/HCPCS: 36415; 80053; 82150; 83690; 85025; 87635; 99284; 96374; 96361 ×2; 96372; J0500; J3490

== ENCOUNTER → 2024-03-24 | Outpatient (CLI) | payer MEDICARE, OTHER ==
--- NOTE | 2024-03-27 10:46 | US ---
EXAMINATION TYPE: US liver DATE OF EXAM: 03/24/2024 COMPARISON: NONE CLINICAL INDICATION: Female, 68 years old with history of R17 JAUNDICE; Elevated bilirubin. Cholecyst ectomy TECHNIQUE: Multiple sonographic images of the right upper quadrant are obtained. FINDINGS: EXAM MEASUREMENTS: Liver Length: 14.5 cm Gallbladder Wall: Surgically absent CBD: 0.4 cm Right Kidney: 11.8 x 4.2 x 4.9 cm Pancreas: Tail obscured by overlying bowel gas Liver: attenuating, which can be compatible with mild fatty. Gallbladder: Surgically absent Evidence for sonographic Baltazar's sign: no CBD: wnl Right Kidney: no evidence of hydronephrosis IMPRESSION: 1. Mild fatty infiltration. No discrete masses. [facility], , 03/27/2024 10:43 AM
--- NOTE | 2024-04-05 11:11 | MM ---
Reason for Exam: Screening (asymptomatic). Last mammogram was performed 4 year(s) and 2 month(s) ago. Patient History: Menarche at age 10. First Full-Term at age 32. Late child-bearing (after 30). Risk Values: Shannan 5 year model risk: 2.4%. NCI Lifetime model risk: 6.9%. Prior Study Comparison: 02/03/2020 Bilateral Screening Mammogram, [facility]. Tissue Density: The breasts are heterogeneously dense, which may obscure small masses. Findings: Analyzed By CAD. The pattern is symmetrical. Distortion within the posterior right craniocaudal view. Compression view recommended. Benign scattered calcifications present bilaterally. Breast:No suspicious groups of microcalcifications, spiculated or lobular masses, architectural distortion or other secondary signs of malignancy are mammographically apparent. Overall Assessment: Incomplete: need additional imaging evaluation, BI-RAD 0 Management: Diagnostic Mammogram of the right breast. A negative mammogram report should not preclude additional follow up of suspicious palpable abnormalities. Patient should continue monthly self breast exam. A clinical breast exam by your physician is recommended on an annual basis and results should be correlated with mammographic findings. Note on Shannan scores and lifetime risk: 1. A Shannan score greater than 3% is considered moderate risk. If this is the case, consider specialist referral to assess eligibility for a risk reducing agent. 2. If overall lifetime risk for the development of breast cancer is 20% or higher, the patient may qualify for future screening with alternating mammogram and breast MRI. [facility], , 04/05/2024 11:08 AM. Electronically signed and approved by: Jayson Mijares D.O. Radiologis
== END | disposition home or self-care (01) ==
LOC: RADMAMWWP 07:02
PROVIDERS: ATTEND Family Medicine
DX: Z12.31 Encounter for screening mammogram for malignant neoplasm of breast
CPT/HCPCS: 76705; 77063; 77067

== ENCOUNTER → 2024-03-24 | Outpatient (CLI) | payer MEDICARE, OTHER | END | disposition home or self-care (01) | LOC: RADUSWWP 07:00 | PROVIDERS: ATTEND Family Medicine | DX: Z53.9 Procedure and treatment not carried out, unspecified reason (principal) ==

== ENCOUNTER → 2024-04-15 | Outpatient (CLI) | payer MEDICARE, OTHER ==
--- NOTE | 2024-04-15 07:41 | MM ---
Reason for Exam: Additional evaluation requested from abnormal screening. Last screening mammogram was performed less than 1 month ago. Patient History: Menarche at age 10. First Full-Term at age 32. Late child-bearing (after 30). Risk Values: [place]ann[place] 5 year model risk: 2.4%. NCI Lifetime model risk: 6.9%. Tissue Density: Right: The breasts are heterogeneously dense, which may obscure small masses. Findings: Analyzed By CAD. There is a persistent 1.4 cm spiculated mass at the right 12 clock position 6.5 cm from the nipple. Ultrasound is recommended. No additional masses seen with certainty. Overall Assessment: Incomplete: need additional imaging evaluation, BI-RAD 0 Management: Diagnostic Breast Ultrasound of the right breast. . Results were given to the patient verbally at the time of exam. Patient should continue monthly self-breast exams. A clinical breast exam by your physician is recommended on an annual basis. This exam should not preclude additional follow-up of suspicious palpable abnormalities. Note on Shannan scores and lifetime risk: 1. A Shannan score greater than 3% is considered moderate risk. If this is the case, consider specialist referral to assess eligibility for a risk reducing agent. 2. If overall lifetime risk for the development of breast cancer is 20% or higher, the patient may qualify for future screening with alternating mammogram and breast MRI. [facility], , 04/15/2024 7:38 AM. Electronically signed and approved by: Eddy Felix M.D. Radiologis
--- NOTE | 2024-04-15 07:57 | USB ---
Reason for Exam: Additional evaluation requested from abnormal screening. Patient History: Menarche at age 10. First Full-Term at age 32. Late child-bearing (after 30). Risk Values: Shannan 5 year model risk: 2.4%. NCI Lifetime model risk: 6.9%. Technique: Method: Targeted. Prior Study Comparison: 02/03/2020 Bilateral Screening Mammogram, [facility]. 03/24/2024 Bilateral MG 3D screening mammo w/cad, [facility]. Findings: The upper section of the breast of the right breast, the axilla of the right breast and the retroareolar of the right breast were scanned. Spiculated mass felt to reflect malignancy until proven otherwise right 12:00 breast 6 cm from the nipple measuring approximately 1.3 x 0.9 cm. No adenopathy is present. No additional masses seen within the imaged field.. Overall Assessment: Highly suggestive of malignancy, BI-RAD 5 Management: Ultrasound Core Biopsy of the right breast. A clinical breast exam by your physician is recommended on an annual basis and results should be correlated with mammographic findings. This exam should not preclude additional follow-up of suspicious palpable abnormalities. Results were given to the patient verbally at the time of exam. [facility], , 04/15/2024 7:53 AM. Electronically signed and approved by: Eddy Felix M.D. Radiologis
== END | disposition home or self-care (01) ==
LOC: RADMAMWWP 06:51
PROVIDERS: ATTEND Family Medicine
DX: R92.8 Other abnormal and inconclusive findings on diagnostic imaging of breast (principal)
CPT/HCPCS: 77061; 77065

== ENCOUNTER → 2024-05-05 | Day surgery (SDC) | payer MEDICARE, OTHER | LOC: RADUSWWP 12:29 | PROVIDERS: ATTEND Surgery | DX: C50.811 Malignant neoplasm of overlapping sites of right female breast (principal); Z17.0 Estrogen receptor positive status [ER+]; Z17.21 Progesterone receptor positive status | CPT/HCPCS: 88305; 88342; 88341; 77065; 19083; A4648 ==

== ENCOUNTER → 2024-05-14 | Outpatient (CLI) | payer MEDICARE, OTHER ==
[2024-05-14 07:38] VITALS: BP 159/67; PULSE 84; RESP 16; TEMP 98.3
--- NOTE | 2024-05-14 08:10 | P.GSCN ---
History of Present Illness Consult date: 05/14/24 Reason for Consult: Biopsy-proven right breast invasive ductal carcinoma 05-05-24 Requesting physician: Julian Ross History of present illness: Tammy is a 68-year-old [place] female seen in consultation for Dr. Ross regarding a biopsy-proven right breast invasive ductal carcinoma. She underwent a bilateral screening mammogram 15921. This revealed some architectural distortion in the right breast leading to further work-up. She had a right breast ultrasound guided core biopsy on 05-05-24, this was (+) for an invasive ductal cancer G1, ER+Pr+ Her 2?. This was a routine screening mammogram. She has not had any other surgery on her breast. She has not had any recent trauma or infection in the breast. She is not complaining of any nipple discharge or skin changes. Caffeine: 1 cup/day nicotine: none/ stopped at 20 years used to smoke 2 PPD 3 years chocolate: occasional BCP: < 5 years hormone: none Family History: father: stomach cancer Hormonal History: menarche: 13 breast fed: yes, age at first :32 menopause: 48 Surgical History: gallbladder brain surgery as a baby Medical History: diabetes Social History: smoke: stoped at 20 smoked 2 packs/day alcohol: stopped at [facility] drugs: none Review of Systems - Constitutional Denies fever, Denies weight loss - EENT Eyes: denies blurred vision Ears: deny: decreased hearing, tinnitus Ears, nose, mouth and throat: Denies dysphagia - Breasts bilateral: as per HPI - Cardiovascular Denies chest pain, Denies shortness of breath - Respiratory Reports as per HPI - Gastrointestinal Reports as per HPI, Reports diarrhea - Genitourinary Genitourinary: Denies dysuria, Denies hematuria Menstruation: Reports postmenopausal - Musculoskeletal Reports as per HPI - Integumentary Denies rash, Denies unusual bruising - Neurological Reports as per HPI, Denies headaches, Denies syncope - Psychiatric Reports as per HPI - Endocrine Endocrine Comment(s): diabetes Reports as per HPI - Hematologic/Lymphatic Denies easy bleeding, Denies easy bruising Hematologic/Lymphatic Comment(s): takes baby aspirin - Allergic/Immunologic Reports as per HPI Past Medical History Past Medical History: Diabetes Mellitus, Hyperlipidemia, Hypertension Additional Past Medical History / Comment(s): menigitis History of Any Multi-Drug Resistant Organisms: None Reported Past Surgical History: Cholecystectomy Past Anesthesia/Blood Transfusion Reactions: No Reported Reaction Additional Past Anesthesia/Blood Transfusion Reaction / Comm: FIRST ANESTHETIC Past Psychological History: No Psychological Hx Reported Smoking Status: Former smoker Past Alcohol Use History: None Reported Additional Past Alcohol Use History / Comment(s): SMOKED A TEENAGER SMOKED 5 YEARS LESS THAN PACK PER WEEK Past Drug Use History: None Reported - Past Family History Mother Family Medical History: Cancer Father Family Medical History: Cancer Medications and Allergies Home Medications Medication Instructions Recorded Confirmed Type Calcium Carbonate [Calcium] 600 mg PO DAILY 10/02/17 05/14/24 History Cholecalciferol [Vitamin D3] 1,000 unit PO DAILY 10/02/17 05/14/24 History Insulin Detemir [Levemir Flextouch] 62 units SQ HS 10/02/17 05/14/24 History Multivitamins, Thera [Multivitamin 1 tab PO DAILY 10/02/17 05/14/24 History (formulary)] Simvastatin [Zocor] 40 mg PO DAILY 10/02/17 05/14/24 History lisinopriL [Zestril] 5 mg PO DAILY 10/02/17 05/14/24 History Aspirin [Beltrami Aspirin EC] 81 mg PO DAILY 04/22/24 05/14/24 History Allergies Allergy/AdvReac Type Severity Reaction Status Date / Time No Known Allergies Allergy Verified 05/14/24 07:36 Surgical - Exam - General no distress - Eyes normal ocular movement - Neck trachea midline - Cardiovascular Rhythm: regular Heart Sounds: normal: S1, S2 - Abdomen Abdomen: soft, non tender, no guarding, no rigid, no rebound - Integumentary normal turgor - Neurologic no disoriented, no combative - Musculoskeletal normal gait - Psychiatric oriented to time, oriented to person, oriented to place, speech is normal, memory intact breast Exam: BRA: 38C Inspection: Bilateral grade 2 ptosis Palpation: Right breast: Multi positional exam dense breast tissue, ecchymosis from recent biopsy, no infection or hematoma, no dominant masses or nodules of concern Right axilla: No adenopathy of concern Left breast: Multi positional exam no dominant masses or nodules of concern Left axilla: No adenopathy of concern Results Mammogram and ultrasound personally reviewed and discussed with Dr. Mijares from radiology, lesion right breast 12 o'clock position less than 2 cm in size Assessment and Plan Assessment: Impression: Right breast invasive ductal carcinoma Diabetes High High cholesterol Plan: Presentation of case at tumor board After discussion with the patient most likely right breast needle localization l umpectomy via a mastopexy incision with oncoplastic tissue transfer and sentinel node biopsy possible axillary node dissection CC: Dr. Ross
== END ==
LOC: WWCWWP 07:23
PROVIDERS: ATTEND Surgery
DX: Z12.31 Encounter for screening mammogram for malignant neoplasm of breast (principal); C50.911 Malignant neoplasm of unspecified site of right female breast; E11.9 Type 2 diabetes mellitus without complications; E78.00 Pure hypercholesterolemia, unspecified; Z87.891 Personal history of nicotine dependence; Z17.0 Estrogen receptor positive status [ER+]; Z79.4 Long term (current) use of insulin

== ENCOUNTER → 2024-06-19 | Outpatient (CLI) | payer MEDICARE, OTHER ==
[2024-06-19 15:16] VITALS: BP 147/79; PULSE 84; RESP 16; TEMP 98
--- NOTE | 2024-06-19 15:24 | P.PN ---
Subjective Progress Note Date: 06/19/24 History of Present Illness Consult date: 06-19-24 Reason for Consult: Biopsy-proven right breast invasive ductal carcinoma 05-05-24 Requesting physician: Julian Ross History of present illness: Tammy is a 68-year-old Pakistani female seen in consultation for Dr. Ross regarding a biopsy-proven right breast invasive ductal carcinoma. She underwent a bilateral screening mammogram . This revealed some architectural distortion in the right breast leading to further work-up. She had a right breast ultrasound guided core biopsy on 05-05-24, this was (+) for an invasive ductal cancer G1, ER+Pr+ Her (-). This was a routine screening mammogram. She has not had any other surgery on her breast. She has not had any recent trauma or infection in the breast. She is not complaining of any nipple discharge or skin changes. presented at tumor board on 05-19-2024. The patient is scheduled for a right breast lumpectomy with sentinel node biopsy. Oncotype will be done on the specimen she is recommended for radiation therapy and endocrine therapy. note radiation oncology 06-11-24 reviewed note medical oncology reviewed 05-28-24 Caffeine: 1 cup/day nicotine: none/ stopped at 20 years used to smoke 2 PPD 3 years chocolate: occasional BCP: < 5 years hormone: none Family History: father: stomach cancer Hormonal History: menarche: 13 breast fed: yes, age at first :32 menopause: 48 Surgical History: gallbladder brain surgery as a baby Medical History: diabetes Social History: smoke: stoped at 20 smoked 2 packs/day alcohol: stopped at ww drugs: none Review of Systems - Constitutional Denies fever, Denies weight loss - EENT Eyes: denies blurred vision Ears: deny: decreased hearing, tinnitus Ears, nose, mouth and throat: Denies dysphagia - Breasts bilateral: as per HPI - Cardiovascular Denies chest pain, Denies shortness of breath - Respiratory Reports as per HPI - Gastrointestinal Reports as per HPI, Reports diarrhea - Genitourinary Genitourinary: Denies dysuria, Denies hematuria Menstruation: Reports postmenopausal - Musculoskeletal Reports as per HPI - Integumentary Denies rash, Denies unusual bruising - Neurological Reports as per HPI, Denies headaches, Denies syncope - Psychiatric Reports as per HPI - Endocrine Endocrine Comment(s): diabetes Reports as per HPI - Hematologic/Lymphatic Denies easy bleeding, Denies easy bruising Hematologic/Lymphatic Comment(s): takes baby aspirin - Allergic/Immunologic Reports as per HPI Past Medical History Past Medical History: Diabetes Mellitus, Hyperlipidemia, Hypertension Additional Past Medical History / Comment(s): menigitis History of Any Multi-Drug Resistant Organisms: None Reported Past Surgical History: Cholecystectomy Past Anesthesia/Blood Transfusion Reactions: No Reported Reaction Additional Past Anesthesia/Blood Transfusion Reaction / Comm: FIRST ANESTHETIC Past Psychological History: No Psychological Hx Reported Smoking Status: Former smoker Past Alcohol Use History: None Reported Additional Past Alcohol Use History / Comment(s): SMOKED A TEENAGER SMOKED 5 YEARS LESS THAN PACK PER WEEK Past Drug Use History: None Reported - Past Family History Mother Family Medical History: Cancer Father Family Medical History: Cancer Medications and Allergies Home Medications Medication Instructions Recorded Confirmed Type Calcium Carbonate [Calcium] 600 mg PO DAILY 10/02/17 05/14/24 History Cholecalciferol [Vitamin D3] 1,000 unit PO DAILY 10/02/17 05/14/24 History Insulin Detemir [Levemir Flextouch] 62 units SQ HS 10/02/17 05/14/24 History Multivitamins, Thera [Multivitamin 1 tab PO DAILY 10/02/17 05/14/24 History (formulary)] Simvastatin [Zocor] 40 mg PO DAILY 10/02/17 05/14/24 History lisinopriL [Zestril] 5 mg PO DAILY 10/02/17 05/14/24 History Aspirin [[place] Aspirin EC] 81 mg PO DAILY 04/22/24 05/14/24 History Allergies Allergy/AdvReac Type Severity Reaction Status Date / Time No Known Allergies Allergy Verified 05/14/24 07:36 Objective - Vital Signs Vital signs: Intake & Output 06/18/24 06/19/24 06/19/24 18:59 06:59 18:59 Weight 56.699 kg - Constitutional General appearance: Present: cooperative - EENT Eyes: Present: EOMI ENT: Present: hearing grossly normal - Neck Neck: Present: normal ROM - Respiratory Respiratory: bilateral: CTA - Cardiovascular Rhythm: regular Heart sounds: normal: S1, S2 - Integumentary Integumentary: Present: normal turgor - Psychiatric Psychiatric: Present: A&O x's 3, appropriate affect, intact judgment & insight - Additional findings Additional findings: breast Exam: BRA: 38C Inspection: Bilateral grade 2 ptosis Palpation: Right breast: Multi positional exam dense breast tissue, ecchymosis from recent biopsy resolved, no infection or hematoma, no dominant masses or nodules of concern Right axilla: No adenopathy of concern Left breast: Multi positional exam no dominant masses or nodules of concern Left axilla: No adenopathy of concern Assessment and Plan Assessment: Impression: Right breast invasive ductal carcinoma Diabetes High High cholesterol Plan: Presentation of case at tumor board done 05-19-24 After discussion with the patient most likely right breast needle localization lumpectomy via a mastopexy incision with oncoplastic tissue transfer and sentinel node biopsy possible axillary node dissection I have discussed the risk and benefits of the procedures with the patient. Risk include but are not limited to bleeding, infection, reaction to the anesthetic. She understands that if the margins were to be positive she would have to have a reexcision. We have discussed sentinel node biopsy and the choosing wisely criteria. She would like to have a sentinel node biopsy. Again risks include but are not limited to bleeding, infection, reaction to the anesthetic. We have discussed decree sensation to the inner arm and possible edema. She wishes to proceed. 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 Secondary to her reluctance to have surgery prior to July we have requested that she see medical oncology to consider hormone therapy until the time of surgery. We have also discussed that this is a cancer and it could progress in that interval she understands and wishes to wait. CC: Dr. Ross
== END ==
LOC: WWCWWP 14:59
PROVIDERS: ATTEND Surgery
DX: C50.911 Malignant neoplasm of unspecified site of right female breast (principal); E11.9 Type 2 diabetes mellitus without complications; E78.00 Pure hypercholesterolemia, unspecified; Z17.0 Estrogen receptor positive status [ER+]; Z17.21 Progesterone receptor positive status; Z79.4 Long term (current) use of insulin; Z87.891 Personal history of nicotine dependence

== ENCOUNTER 2024-06-23 07:13 | Day surgery (SDC) | payer MEDICARE, OTHER ==
[2024-06-23] MEDS ORDERED: MIDAZOLAM 2 MG/2 ML VIAL IV PRN (07:46)
[2024-06-23] MEDS ORDERED: HYDROmorphone 0.5 MG/0.5 ML SYRINGE IVP PRN (07:46)
[2024-06-23] MEDS ORDERED: fentaNYL (PF) 50 MCG/ML 2 ML AMP IVP PRN (07:46)
[2024-06-23] MEDS ORDERED: LIDOCAINE 1% (10MG/ML) FOR IV START INTRADERMA PRN (07:46)
[2024-06-23] MEDS: IV FLUID CONTINUATION 1,000 ML IV ONE ×2 (08:08→09:29)
[2024-06-23 08:15] LABS: Glucose,Whole Blood 192 mg/dL (70-110)
[2024-06-23] MEDS: LACTATED RINGERS 1,000 ML IV SCH (08:15)
[2024-06-23] MEDS: ALPRAZolam 0.25 MG TAB PO STA (08:17)
[2024-06-23] MEDS: ACETAMINOPHEN TAB 500 MG TAB PO PRN (08:17)
[2024-06-23] MEDS: LIDOCAINE 1% INJ 10MG/ML (20 ML MDV) SQ ONE (08:49)
[2024-06-23] MEDS: SODIUM BICARB 8.4% 50 ML VIAL (1 MEQ/ML) MISCELLANE ONE (08:49)
[2024-06-23] MEDS: ONDANSETRON 4 MG/2 ML VIAL IVP ONE (09:25)
[2024-06-23] MEDS: DEXAMETHASONE SOD PHOSPHATE 4 MG/ML 1 ML VIAL IV ONE (09:25)
[2024-06-23] MEDS: HEPARIN SODIUM,PORCINE 5,000 UNIT/ML 1 ML VIAL SQ PRN (09:25)
[2024-06-23] MEDS ORDERED: fentaNYL (PF) 50 MCG/ML 2 ML AMP ONE (09:28)
[2024-06-23] MEDS ORDERED: PHENYLEPHRINE-0.9% NACL SYG 1,000 MCG/10 ML SYRINGE ONE (09:28)
[2024-06-23] MEDS ORDERED: LIDOCAINE 1% INJ 10MG/ML (20 ML MDV) ONE (09:28)
[2024-06-23] MEDS ORDERED: PROPOFOL 10 MG/ML 20 ML VIAL IV ONE (09:28)
[2024-06-23] MEDS ORDERED: KETOROLAC 15 MG/ML 1 ML VIAL ONE (09:28)
[2024-06-23] MEDS ORDERED: SUCCINYLCHOLINE CHLORIDE 200 MG/10 ML VIAL IV ONE (09:28)
--- NOTE | 2024-06-23 09:40 | P.NAPBC ---
NAPBC Queries - NAPBC Queries Was patient's case review presented at [facility] tumor board? If no, comment.: Yes Was patient's pathology reviewed at [facility]? If no, comment.: Yes Was breast conservation surgery offered? If no, comment.: Yes Was sentinel node biopsy offered? If no, comment.: Yes Was diagnosis confirmed by percutaneous core biopsy? If no, comment.: Yes Is patient mastectomy patient?: No Was a preop referral to reconstructive surgeon offered?: No Clinical Stage: right breast invasive ductal cancer [id number]
--- NOTE | 2024-06-23 09:50 | NM ---
EXAMINATION TYPE: NM sentinel node injection DATE OF EXAM: 06/23/2024 COMPARISON: NONE CLINICAL INDICATION: Female, 68 years old with history of Breast cancer; TECHNIQUE AND FINDINGS: The procedure of sentinel lymph node injection was explained to the patient. The benefits, alternatives, and risks were discussed. An informed consent was then obtained. Overlying skin is cleaned with sterile alcohol. Following this, 517 uCi Tc99m Tilmanocept was inject ed in the upper outer aspect of the Right nipple intradermally. The patient tolerated the procedure well without any immediate complication. The patient was kept in the radiology department for short stay after the procedure and then taken to surgery for surgical p rocedure what is presumed intraoperative gamma probe will be used for sentinel lymph node detection. IMPRESSION: Right breast radiotracer injection for sentinel node localization as above. [facility], , 06/23/2024 9:48 AM
[2024-06-23] MEDS: LIDOCAINE 1% INJ 10MG/ML (30 ML VIAL-PF) SQ ONE ×2 (09:57→11:27)
--- NOTE | 2024-06-23 11:27 | P.BCAON ---
Date of Procedure: 06/23/24 Preoperative Diagnosis: Right breast invasive ductal carcinoma Postoperative Diagnosis: Same Procedure(s) Performed: Right breast needle localization lumpectomy, right breast oncoplastic tissue transfer 36 cm, right sentinel node biopsy, mastopexy Anesthesia: DELBERT Surgeon: Jannet Kya Estimated Blood Loss (ml): 10 IV fluids (ml): 600 Pathology: other (Breast tissue, axillary lymph nodes) Condition: stable Disposition: same day Indications for Procedure: Right breast biopsy-proven invasive ductal carcinoma Operative Findings: Dense breast tissue Description of Procedure: The patient was seen initially in the radiology department where needle localization of the area of concern in the right breast was performed. Additionally radiotracer was injected in the periareolar region. She was then seen in the preoperative area for markings were placed for a right breast mastopexy incision. The mastopexy was to be a crescent mastopexy with an elevation of the nipple areolar complex of 2 cm. The meridian line was drawn and the marking was then placed for the mastopexy incision. The patient was taken to the operative suite. Following induction of anesthesia the axilla was interrogated using the neoprobe. Radioactivity was identified in the axilla. The right breast and axilla were then prepped and draped in a sterile fashion. Using the neoprobe the area of greatest radioactivity was identified and a incision was made over the site. Dissection was performed into the deep axillary tissues. Using the neoprobe 3 axillary lymph nodes were excised. The first had a 10-second count of 23,575, the second a 10-second count of 1315, and the third a 10-second count of 2121. There was some scattered residual radioactivity with a 10-second count of 50. No other palpable nodes or lesions of concern were identified. Following this the axilla was irrigated. The deep tissues were closed using 3-0 Vicryl suture. The skin was closed using 4-0 Monocryl. The area of the breast was approached. A markings which have been placed in the preoperative area were utilized. The skin was de-epithelialized and a crescent fashion elevating the nipple areolar complex approximately 2 cm. After the skin had been de-epithelialized the breast parenchyma was entered. Dissection was carried down to the shaft of the localizing needle. Wide excision was performed around the needle. Posteriorly dissection was carried down to the pectoralis muscle. The specimen was 5 x 3 cm. The specimen was painted for orientation. Radiograph of the specimen revealed the area of concern including the clip was removed. After reassured that hemostasis was attained the wound was well irrigated. Titanium clips were placed in the cavity. Surgicel in powder form was placed in the cavity. A medial pillar 3.5 x 3 cm was developed and a lateral pillar 3.5 x 3 cm was developed. After reassured that hemostasis was attained Surgicel in powder form was placed in these cavities. The pillars were brought together and secured using 3-0 Vicryl suture to close the defect where the specimen had been removed. After reassured that hemostasis was attained the subcutaneous tissues were closed using 3-0 Vicryl suture. This was followed by closure of the skin using 4-0 Monocryl. The patient tolerated the procedure in stable condition. All instrument and sponge counts were correct at the end of the case. 10 cc of 1% lidocaine were injected into the incisions. Surgical glue was placed. The patient will follow-up with Dr. Davidson and the specimen was sent to pathology. - Sentinal Node Biopsy Operation performed with curative intent: Yes Tracer(s) used in upfront surgery (non-neoadjuvant): radioactive tracer Tracer(s) used in the neoadjuvant setting: N/A All nodes present at end of dye-filled channel removed: N/A All significantly radioactive nodes were removed: Yes All palpably suspicious nodes were removed: Yes Clipped positive nodes identified and removed: N/A
--- NOTE | 2024-06-23 11:29 | P.DS ---
Providers Attending physician: Jannet Kay Primary care physician: Julian Ross Plan - Discharge Summary Discharge Rx Participant: No New Discharge Prescriptions: New oxyCODONE HCL [OxyIR] 5 mg PO Q6H PRN #5 tab PRN Reason: Breakthrough Pain No Action Multivitamins, Thera [Multivitamin (formulary)] 1 tab PO DAILY Cholecalciferol [Vitamin D3] 1,000 unit PO DAILY Calcium Carbonate [Calcium] 600 mg PO DAILY lisinopriL [Zestril] 5 mg PO DAILY Simvastatin [Zocor] 40 mg PO DAILY Insulin Glargine,Hum.rec.anlog [[place] Solostar] 44 units SQ HS Aspirin [[facility] Aspirin EC] 81 mg PO DAILY Discharge Medication List Calcium Carbonate [Calcium] 600 mg PO DAILY 10/02/17 [History] Cholecalciferol [Vitamin D3] 1,000 unit PO DAILY 10/02/17 [History] Multivitamins, Thera [Multivitamin (formulary)] 1 tab PO DAILY 10/02/17 [History] Simvastatin [Zocor] 40 mg PO DAILY 10/02/17 [History] lisinopriL [Zestril] 5 mg PO DAILY 10/02/17 [History] Aspirin [[facility] Aspirin EC] 81 mg PO DAILY 04/22/24 [History] Insulin Glargine,Hum.rec.anlog [[place] Solostar] 44 units SQ HS 06/22/24 [History] oxyCODONE HCL [OxyIR] 5 mg PO Q6H PRN #5 tab 06/23/24 [Rx] Follow up Appointment(s)/Referral(s): Jannet Kay MD [STAFF PHYSICIAN] - 3 Days Activity/Diet/Wound Care/Special Instructions: Do not drive for 24 hours from discharge or if taking narcotic pain medicine May shower after 48 hours Wear bra at all times unless showering Discharge Disposition: HOME SELF-CARE
[2024-06-23 11:52] LABS: Glucose,Whole Blood 185 mg/dL (70-110)
[2024-06-23 11:57] VITALS: TEMP 97.1
[2024-06-23 12:37] VITALS: RESP 16
[2024-06-23 13:02] VITALS: BP 158/71; PULSE 70
--- NOTE | 2024-07-03 09:28 | MM ---
Pathology Description: Approach: CC FA Needle Type: 5 cm K[place] Informed consent was obtained and all the patient's questions were answered. The clip in question was localized mammographically. The standard sterile technique was utilized, as well as appropriate local anesthesia with 1% Lidocaine and bicarbonate. Localization needle followed by placement of a guidewire was performed under mammographic guidance. Verification images demonstrate appropriate deployment of the guidewire. The patient tolerated the procedure well and left the department in stable condition. Specimen radiograph demonstrates the clip, guidewire and spiculated nodule in question to reside within the specimen. IMPRESSION: Successful needle localization and open biopsy right breast with pathology results pending. [facility], Workstation: [employer], 06/24/2024 2:09 PM. Pathology Results: Result: Malignant, Invasive ductal carcinoma. Pathology and radiology were reviewed. Findings are concordant. A. 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 Invasive tumor closely approaches the superior and anterior margins (less than 1 mm from the superior margin and 1 mm from the anterior margin). DCIS measures 1 mm from the lateral, superior and posterior margins. Background fibrocystic changes, previous biopsy site and lobular neoplasia (ALH/LCIS). See Surgical Pathology Cancer Case Summary. B. SENTINEL LYMPH NODE #1, RIGHT BREAST: Lymph node negative for metastasis. CK7 immunostain performed on block B1 and ROB immunostain performed on block B2 are confirmatory (controls appropriate). C. SENTINEL LYMPH NODE #2, RIGHT BREAST: Benign adipose tissue. No lymph node is identified. D. SENTINEL LYMPH NODE #3, RIGHT BREAST: Lymph node negative for metastasis. CK7 immunostain performed on block D1 and ROB immunostain performed on block D2 are confirmatory (controls appropriate). Overall Assessment: Malignant Management: Surgical Consultation of the right breast. Electronically signed and approved by: Eddy Felix M.D. Radiologis
== END 2024-06-23 13:47 | disposition home or self-care (01) ==
LOC: OR 07:13
PROVIDERS: ATTEND Surgery
DX: D05.11 Intraductal carcinoma in situ of right breast (principal); I10 Essential (primary) hypertension; E78.5 Hyperlipidemia, unspecified; E11.9 Type 2 diabetes mellitus without complications; E07.9 Disorder of thyroid, unspecified; Z79.4 Long term (current) use of insulin; Z79.82 Long term (current) use of aspirin; Z79.899 Other long term (current) drug therapy
CPT/HCPCS: 38525; 19303; 88305; 88342; 88307; 88341; 76098; 19281; 38792; C1819; A9520; J0330; J1644; J1100; J0690; J2405; J2003 ×2; J3010; J1885; J2704; J2371

== ENCOUNTER 2024-06-23 20:02 | Emergency (ER) | payer MEDICARE, OTHER ==
[2024-06-23 20:29] VITALS: RESP 18
--- NOTE | 2024-06-23 20:29 | ED ---
Nausea/Vomiting/Diarrhea HPI - General Source: patient, RN notes reviewed, old records reviewed, Caregiver Mode of arrival: ambulatory Limitations: no limitations - History of Present Illness MD complaint: nausea, vomiting <Alexis Gilbert - Last Filed: 06/23/24 20:29> <Sawyer Flores - Last Filed: 06/24/24 02:57> - General Chief complaint: Nausea/Vomiting/Diarrhea Stated complaint: Vomiting,Post Op - History of Present Illness Initial comments: QN-female to ER for nausea vomiting and hyperglycemia elevated blood sugar after having a lumpectomy with Cass Gruber this afternoon (Alexis Gilbert) 68-year-old female presenting with chief complaint of nausea and vomiting. Patient had a lumpectomy earlier this afternoon. Later on in the day she took a Vicodin on an empty stomach and started having nausea and vomiting. Since the patient is a diabetic she was concerned about her blood sugar as she could not hold down food. This prompted her to come to the ER. She is having no abdominal pain, chest pain, difficulty breathing. She is having expected soreness with no exquisite tenderness. No fever. No weakness. (Sawyer Flores) - Related Data Home Medications Medication Instructions Recorded Confirmed Calcium Carbonate [Calcium] 600 mg PO DAILY 10/02/17 06/22/24 Cholecalciferol [Vitamin D3] 1,000 unit PO DAILY 10/02/17 06/22/24 Multivitamins, Thera [Multivitamin 1 tab PO DAILY 10/02/17 06/22/24 (formulary)] Simvastatin [Zocor] 40 mg PO DAILY 10/02/17 06/23/24 lisinopriL [Zestril] 5 mg PO DAILY 10/02/17 06/23/24 Aspirin [[place] Aspirin EC] 81 mg PO DAILY 04/22/24 06/22/24 Insulin Glargine,Hum.rec.anlog 44 units SQ HS 06/22/24 06/23/24 [Mally Sanches] Previous Rx's Medication Instructions Recorded Ondansetron Odt [Zofran Odt] 4 mg PO Q8HR PRN #20 tab 06/23/24 oxyCODONE HCL [OxyIR] 5 mg PO Q6H PRN #5 tab 06/23/24 Allergies Allergy/AdvReac Type Severity Reaction Status Date / Time No Known Allergies Allergy Verified 06/23/24 20:28 Review of Systems ROS Other: All systems not noted in ROS Statement are negative. <Alexis Gilbert Noemi - Last Filed: 06/23/24 20:29> ROS Other: All systems not noted in ROS Statement are negative. <Sawyer Flores - Last Filed: 06/24/24 02:57> ROS Statement: Those systems with pertinent positive or pertinent negative responses have been documented in the HPI. Past Medical History Past Medical History: Diabetes Mellitus, Hyperlipidemia, Hypertension Additional Past Medical History / Comment(s): menigitis History of Any Multi-Drug Resistant Organisms: None Reported Past Surgical History: Cholecystectomy Additional Past Surgical History / Comment(s): breast lump removal (2023) Past Anesthesia/Blood Transfusion Reactions: No Reported Reaction Additional Past Anesthesia/Blood Transfusion Reaction / Comment(s): FIRST A NESTHETIC Past Psychological History: No Psychological Hx Reported Smoking Status: Former smoker Past Alcohol Use History: None Reported Past Drug Use History: None Reported - Past Family History Mother Family Medical History: Cancer Father Family Medical History: Cancer <TieranitoAlexis - Last Filed: 06/23/24 20:29> General Exam Limitations: no limitations General appearance: alert, in no apparent distress Head exam: Present: atraumatic, normocephalic, normal inspection Eye exam: Present: normal appearance, PERRL, EOMI. Absent: scleral icterus, conjunctival injection, periorbital swelling ENT exam: Present: normal exam, mucous membranes moist Neck exam: Present: normal inspection. Absent: tenderness, meningismus, lymphadenopathy Respiratory exam: Present: normal lung sounds bilaterally. Absent: respiratory distress, wheezes, rales, rhonchi, stridor Cardiovascular Exam: Present: regular rate, normal rhythm, normal heart sounds. Absent: systolic murmur, diastolic murmur, rubs, gallop, clicks GI/Abdominal exam: Present: soft, normal bowel sounds. Absent: distended, tenderness, guarding, rebound, rigid Extremities exam: Present: normal inspection, full ROM, normal capillary refill. Absent: tenderness, pedal edema, joint swelling, calf tenderness Back exam: Present: normal inspection Neurological exam: Present: alert, oriented X3, CN II-XII intact Psychiatric exam: Present: normal affect, normal mood Skin exam: Present: warm, dry, intact, normal color. Absent: rash <Alexis Gilbert - Last Filed: 06/23/24 20:29> General appearance: alert, in no apparent distress Head exam: Present: atraumatic, normocephalic, normal inspection Eye exam: Present: normal appearance, EOMI Neck exam: Present: normal inspection. Absent: meningismus Respiratory exam: Present: normal lung sounds bilaterally. Absent: respiratory distress, wheezes, rales, rhonchi, stridor Cardiovascular Exam: Present: regular rate, normal rhythm, normal heart sounds. Absent: systolic murmur, diastolic murmur, rubs, gallop, clicks GI/Abdominal exam: Present: soft. Absent: distended, tenderness, guarding, rebound, rigid Neurological exam: Present: alert, oriented X3 Psychiatric exam: Present: normal affect, normal mood Skin exam: Present: normal color <Sawyer Flores - Last Filed: 06/24/24 02:57> Course <Alexis Gilbert - Last Filed: 06/23/24 20:29> Vital Signs 06/23/24 06/23/24 20:23 23:15 Temperature 97.5 F L 98 F Pulse Rate 69 72 Respiratory 18 18 Rate Blood Pressure 172/71 158/76 O2 Sat by Pulse 98 98 Oximetry - Reevaluation(s) Reevaluation #1: 06/23/24 20:29 QN completed by myself Dr Gilbert (Alexis Gilbert) Medical Decision Making - Lab Data Result diagrams: 06/23/24 20:29 06/23/24 20:29 <Sawyer Flores - Last Filed: 06/24/24 02:57> - Medical Decision Making Was pt. sent in by a medical professional or institution (, PA, PUBLIC HEALTH ENGINEER, urgent care, hospital, or skilled nursing...) When possible be specific @ -No Did you speak to anyone other than the patient for history (EMS, parent, family, police, friend...)? What history was obtained from this source @ -Spouse Did you review nursing and triage notes (agree or disagree)? Why? @ -I reviewed and agree with nursing and triage notes Were old charts reviewed (outside hosp., previous admission, EMS record, old EKG, old radiological studies, urgent care reports/EKG's, skilled nursing records)? Report findings @ -No old charts were reviewed Differential Diagnosis (chest pain, altered mental status, abdominal pain women, abdominal pain men, vaginal bleeding, weakness, fever, dyspnea, syncope, headache, dizziness, GI bleed, back pain, seizure, CVA, palpatations, mental he alth, musculoskeletal)? @ -Differential includes medication side effect, gastroenteritis, bowel ob struction, this is not an all-inclusive list EKG interpreted by me (3pts min.). @ -EKG shows sinus rhythm ventricular rate 70. ND interval 161. QRS 89. QT 416. QTc 438. No acute ischemic changes. X-rays interpreted by me (1pt min.). @ -None done CT interpreted by me (1pt min.). @ -None done U/S interpreted by me (1pt. min.). @ -None done What testing was considered but not performed or refused? (CT, X-rays, U/S, labs)? Why? @ -None What meds were considered but not given or refused? Why? @ -None Did you discuss the management of the patient with other professionals (professionals i.e. , PA, PUBLIC HEALTH ENGINEER, lab, RT, psych nurse, social work assistant, emt dispatcher, teacher, chief talent officer, rn case manager hospice)? Give summary @ -No Was smoking cessation discussed for >3mins.? @ -No Was critical care preformed (if so, how long)? @ -No Were there social determinants of health that impacted care today? How? ( Homelessness, low income, unemployed, alcoholism, drug addiction, transportation, low edu. Level, literacy, decrease access to med. care, alf, rehab)? @ -No Was there de-escalation of care discussed even if they declined (Discuss DNR or withdrawal of care, Hospice)? DNR status @ -No What co-morbidities impacted this encounter? (DM, HTN, Smoking, COPD, CAD, Cancer, CVA, ARF, Chemo, Hep., AIDS, mental health diagnosis, sleep apnea, morbid obesity)? @ -None Was patient admitted / discharged? Hospital course, mention meds given and route, prescriptions, significant lab abnormalities, going to OR and other pertinent info. @ -68-year-old female presenting with chief complaint of nausea and vomiting. This started after she took a pain medication at home following a lumpectomy earlier this afternoon. She took this medication on empty stomach. Workup was initiated by triage. No leukocytosis or anemia. Anion gap is WNL. Glucose is 254. Negative acetone. EKG shows sinus rhythm with no acute ischemic findings and troponin is negative. Patient is under placed in a hallway bed and ev aluated by myself. Patient has been eating crackers and having no continued symptoms of vomiting. Patient is eager for discharge home. She is educated on today's findings. Instructed to try to eat something prior to taking her pain medication. Provided with Zofran for home. Discharged. Follow-up with PCP. Report back to ER with any new or worsening symptoms. Discussed return parameters and answered all questions. Patient conveyed verbal understanding and agreed to the plan. I discussed this case in detail with my attending Dr. Aguila Undiagnosed new problem with uncertain prognosis? @ -No Drug Therapy requiring intensive monitoring for toxicity (Heparin, Nitro, Insulin, Cardizem)? @ -No Were any procedures done? @ -No Diagnosis/symptom? @ -Nausea and vomiting Acute, or Chronic, or Acute on Chronic? @ -Acute Uncomplicated (without systemic symptoms) or Complicated (systemic symptoms)? @ -Uncomplicated Side effects of treatment? @ -No Exacerbation, Progression, or Severe Exacerbation? @ -No Poses a threat to life or bodily function? How? (Chest pain, [place], [place], pneumonia, PE, COPD, DKA, ARF, appy, cholecystitis, CVA, Diverticulitis, Homicidal, Suicidal, threat to staff... and all critical care pts) @ -No (Sawyer Flores) - Lab Data Lab Results 06/23/24 06/23/24 06/23/24 Range/Units 20:29 20:29 20:29 WBC 9.8 (3.8-10.6) k/uL RBC 4.52 (3.80-5.40) m/uL Hgb 14.2 (11.4-16.0) gm/dL Hct 43.1 (34.0-46.0) % MCV 95.4 (80.0-100.0) fL MCH 31.4 (25.0-35.0) pg MCHC 33.0 (31.0-37.0) g/dL RDW 12.0 (11.5-15.5) % Plt Count 162 (150-450) k/uL MPV 7.4 Neutrophils % 85 % Lymphocytes % 10 % Monocytes % 4 % Eosinophils % 1 % Basophils % 0 % Neutrophils # 8.3 H (1.3-7.7) k/uL Lymphocytes # 1.0 (1.0-4.8) k/uL Monocytes # 0.3 (0-1.0) k/uL Eosinophils # 0.1 (0-0.7) k/uL Basophils # 0.0 (0-0.2) k/uL Sodium 135 L (137-145) mmol/L Potassium 4.6 (3.5-5.1) mmol/L Chloride 99 (98-107) mmol/L Carbon Dioxide 28 (22-30) mmol/L Anion Gap 8 mmol/L BUN 30 H (7-17) mg/dL Creatinine 0.55 (0.52-1.04) mg/dL Est GFR (CKD-EPI)AfAm >90 (>60 ml/min/1.73 sqM) Est GFR (CKD-EPI)NonAf >90 (>60 ml/min/1.73 sqM) Glucose 254 H (74-99) mg/dL POC Glucose (mg/dL) (70-110) mg/dL POC Glu Gas Roller Operator ID Plasma Lactic Acid Merrick 1.2 (0.7-2.0) mmol/L Calcium 9.3 (8.4-10.2) mg/dL Phosphorus 4.9 H (2.5-4.5) mg/dL Magnesium 2.0 (1.6-2.3) mg/dL Total Bilirubin 0.9 (0.2-1.3) mg/dL AST 26 (14-36) U/L ALT 26 (4-34) U/L Alkaline Phosphatase 69 (38-126) U/L Troponin I (0.000-0.034) ng/mL Total Protein 7.0 (6.3-8.2) g/dL Albumin 4.8 (3.5-5.0) g/dL Acetone, Qual Negative (Negative) 06/23/24 06/23/24 Range/Units 20:29 21:28 WBC (3.8-10.6) k/uL RBC (3.80-5.40) m/uL Hgb (11.4-16.0) gm/dL Hct (34.0-46.0) % MCV (80.0-100.0) fL MCH (25.0-35.0) pg MCHC (31.0-37.0) g/dL RDW (11.5-15.5) % Plt Count (150-450) k/uL MPV Neutrophils % % Lymphocytes % % Monocytes % % Eosinophils % % Basophils % % Neutrophils # (1.3-7.7) k/uL Lymphocytes # (1.0-4.8) k/uL Monocytes # (0-1.0) k/uL Eosinophils # (0-0.7) k/uL Basophils # (0-0.2) k/uL Sodium (137-145) mmol/L Potassium (3.5-5.1) mmol/L Chloride (98-107) mmol/L Carbon Dioxide (22-30) mmol/L Anion Gap mmol/L BUN (7-17) mg/dL Creatinine (0.52-1.04) mg/dL Est GFR (CKD-EPI)AfAm (>60 ml/min/1.73 sqM) Est GFR (CKD-EPI)NonAf (>60 ml/min/1.73 sqM) Glucose (74-99) mg/dL POC Glucose (mg/dL) 234 H (70-110) mg/dL POC Glu Gas Roller Operator ID Jai Regina Plasma Lactic Acid Merrick (0.7-2.0) mmol/L Calcium (8.4-10.2) mg/dL Phosphorus (2.5-4.5) mg/dL Magnesium (1.6-2.3) mg/dL Total Bilirubin (0.2-1.3) mg/dL AST (14-36) U/L ALT (4-34) U/L Alkaline Phosphatase (38-126) U/L Troponin I <0.012 (0.000-0.034) ng/mL Total Protein (6.3-8.2) g/dL Albumin (3.5-5.0) g/dL Acetone, Qual (Negative) Disposition <Alexis Gilbert - Last Filed: 06/23/24 20:29> Is patient prescribed a controlled substance at d/c from ED?: No Time of Disposition: 23:06 <Sawyer Flores - Last Filed: 06/24/24 02:57> Clinical Impression: Nausea & vomiting Disposition: HOME SELF-CARE Condition: Good Instructions (If sedation given, give patient instructions): Acute Nausea and Vomiting (ED) Additional Instructions: Follow-up with your PCP and surgeon. Report back to ER with any new or worsening symptoms. Take medication as prescribed. Try to eat something prior to taking her pain medication. Prescriptions: Ondansetron Odt [Zofran Odt] 4 mg PO Q8HR PRN #20 tab PRN Reason: Nausea Referrals: Julian Ross DO [Primary Care Provider] - 1-2 days
[2024-06-23 21:25] LABS: Basophils % (A) 0 %; Eosinophils # (A) 0.1 k/uL (0-0.7); Eosinophils % (A) 1 %; HCT 43.1 % (34.0-46.0); HGB 14.2 gm/dL (11.4-16.0); Lymphocytes % (A) 10 %; MCH 31.4 pg (25.0-35.0); MCV 95.4 fL (80.0-100.0); Mean Platelet Volume 7.4; Monocytes # (A) 0.3 k/uL (0-1.0); Monocytes % (A) 4 %; Neutrophils # (A) 8.3 k/uL (1.3-7.7); Neutrophils % (A) 85 %; Platelet Count 162 k/uL (150-450); RBC 4.52 m/uL (3.80-5.40); WBC 9.8 k/uL (3.8-10.6)
[2024-06-23 21:29] LABS: Glucose,Whole Blood 234 mg/dL (70-110)
[2024-06-23 21:35] LABS: ALT 26 U/L (4-34); AST 26 U/L (14-36); African American GFR (CKD) >90 (>60 ml/min/1.73 sqM); Albumin 4.8 g/dL (3.5-5.0); Alkaline Phosphatase 69 U/L (38-126); Anion Gap 8 mmol/L; Blood Urea Nitrogen 30 mg/dL (7-17); Calcium 9.3 mg/dL (8.4-10.2); Carbon Dioxide 28 mmol/L (22-30); Chloride 99 mmol/L (98-107); Glucose 254 mg/dL (74-99); Non-African American GFR(CKD) >90 (>60 ml/min/1.73 sqM); Phosphorus 4.9 mg/dL (2.5-4.5); Potassium 4.6 mmol/L (3.5-5.1); Sodium 135 mmol/L (137-145); Total Bilirubin 0.9 mg/dL (0.2-1.3)
[2024-06-23] MEDS: ONDANSETRON 4 MG/2 ML VIAL IVP STA (22:38)
[2024-06-23] MEDS: SODIUM CHLORIDE 0.9% 500 ML 500 ML IV STA (22:39)
[2024-06-23] MEDS: ONDANSETRON ODT 4 MG TAB PO STA (22:39)
[2024-06-23] MEDS: SODIUM CHLORIDE 0.9% 1,000 ML IV STA (22:39)
[2024-06-23 23:24] VITALS: BP 158/76; PULSE 72; TEMP 98
== END 2024-06-23 23:20 | disposition home or self-care (01) ==
LOC: EC 20:02
DX: R11.2 Nausea with vomiting, unspecified (principal); Z87.891 Personal history of nicotine dependence
CPT/HCPCS: 36415; 80053; 82009; 83605; 83735; 84100; 84484; 85025; 93005; 99284

== ENCOUNTER → 2024-06-26 | Outpatient (CLI) | payer MEDICARE, OTHER ==
[2024-06-26 12:48] VITALS: BP 157/75; PULSE 88; RESP 16; TEMP 98.3
--- NOTE | 2024-06-26 13:01 | P.BCPO ---
Progress Note - Text Progress Note Date: 06/26/24 Patient is status post right breast lumpectomy on 06-23-24. Her pathology is pending. She did well post op. Examination: Lungs: Clear Heart: Regular rate and rhythm Incision axilla and breast clean and dry Plan: follow up in two weeks appointment with medical oncology appointment with radiationi oncology Post Op Education - Post Op Education Post Op Education Provided Date: 06/26/24 - Functional Assessment Performed?: Yes (arm abduction)
== END ==
LOC: WWCWWP 12:29
PROVIDERS: ATTEND Surgery
DX: Z48.817 Encounter for surgical aftercare following surgery on the skin and subcutaneous tissue (principal); Z85.3 Personal history of malignant neoplasm of breast; Z87.891 Personal history of nicotine dependence

== ENCOUNTER → 2024-07-09 | Outpatient (CLI) | payer MEDICARE, OTHER ==
[2024-07-09 09:25] VITALS: BP 162/79; PULSE 70; RESP 17; TEMP 98.1
--- NOTE | 2024-07-09 10:03 | P.BCPO ---
Progress Note - Text Progress Note Date: 07/09/24 Tammy is status post a right breast lumpectomy and SNB on 06-23-24. Her tumor was 1.3 cm there was DCIS present but all margins were (-). She had two nodes removed (-) for tumor. The lesion was ER+/ME+, Her2- G1. Post op she is doing well. Examination: Incision breast and axilla clean and dry no evidence of seroma Lungs clear Heart regular rate and rhythm Impression: Patient doing well postoperatively Plan: Appointment medical oncology Appointment radiation oncology Follow-up in 4 months Post Op Education - Post Op Education Post Op Education Provided Date: 07/09/24 - Functional Assessment Performed?: Yes (arm abduction passed) Path Report - Was patient given path report? Path Report Date Given: 07/09/24
== END ==
LOC: WWCWWP 09:12
PROVIDERS: ATTEND Surgery
DX: Z48.3 Aftercare following surgery for neoplasm (principal)

== ENCOUNTER → 2024-07-22 | Outpatient (CLI) | payer MEDICARE, OTHER ==
[2024-07-22 17:06] LABS: Hepatitis A Antibody IgM Nonreactive (Nonreactive); Hepatitis B Core IgM Nonreactive (Nonreactive); Hepatitis B Surface Antigen Nonreactive (Nonreactive); Hepatitis C IgG Antibody Nonreactive (Nonreactive)
[2024-07-22 17:24] LABS: ALT 33 U/L (8-44); AST 24 U/L (13-35); Albumin 4.8 g/dL (3.8-4.9); Alkaline Phosphatase 96 U/L (41-126); BUN/Creat Ratio 32.33 Ratio (12.00-20.00); Blood Urea Nitrogen 19.4 mg/dL (9.0-27.0); Calcium 10.1 mg/dL (8.7-10.3); Chloride 102 mmol/L (96-109); Globulin 2.4 g/dL (1.6-3.3); Glucose 90 mg/dL (70-110); Potassium 4.6 mmol/L (3.5-5.5); Sodium 142 mmol/L (135-145); Total Bilirubin 0.4 mg/dL (0.3-1.2); Total Protein 7.2 g/dL (6.2-8.2)
[2024-07-22 17:29] LABS: Basophils # (A) 0.04 X 10*3/uL (0.00-0.10); Basophils % (A) 0.5 %; Eosinophils # (A) 0.13 X 10*3/uL (0.04-0.35); Eosinophils % (A) 1.6 %; HGB 15.1 g/dL (12.0-15.0); Lymphocytes # (A) 2.95 X 10*3/uL (0.90-5.00); Lymphocytes % (A) 35.2 %; MCH 30.8 pg (27.0-32.0); MCHC 32.8 g/dL (32.0-37.0); MCV 93.9 FL (80.0-97.0); Mean Platelet Volume 9.7 FL (9.5-12.2); Monocytes # (A) 0.66 X 10*3/uL (0.20-1.00); Monocytes % (A) 7.9 %; NRBC Per 100 WBC 0 X 10*3/uL (0.00-0.01); Neutrophils # (A) 4.54 X 10*3/uL (1.80-7.70); Neutrophils % (A) 54.2 %; Platelet Count 217 X 10*3/uL (140-440); RDW 12.3 % (11.5-14.5); WBC 8.37 X 10*3/uL (4.50-10.00)
== END | disposition home or self-care (01) ==
LOC: LABWHC1 10:57
PROVIDERS: ATTEND Nurse Practitioner Family
DX: K76.0 Fatty (change of) liver, not elsewhere classified (principal)
CPT/HCPCS: 36415; 80053; 80074; 81596; 85025

== ENCOUNTER → 2024-10-08 | Outpatient (CLI) | payer MEDICARE, OTHER ==
[2024-10-08 08:04] VITALS: BP 129/67; PULSE 78; RESP 17; TEMP 97.5
--- NOTE | 2024-10-08 08:19 | P.PN ---
Subjective Progress Note Date: 10/08/24 Principal diagnosis: right breast stage I IDC [id number]+Her2- 10-08-24 History of Present Illness right breast invasive ductal carcinoma 05-05-24 Requesting physician: Julian Ross History of present illness: Tammy is a 68-year-old [place] female seen in consultation for Dr. Ross regarding a biopsy-proven right breast invasive ductal carcinoma. She underwent a bilateral screening mammogram . This revealed some architectural distortion in the right breast leading to further work-up. She had a right breast ultrasound guided core biopsy on 05-05-24, this was (+) for an invasive ductal cancer G1, ER+Pr+ Her (-). This was a routine screening mammogram. She has not had any other surgery on her breast. She has not had any recent trauma or infection in the breast. She is not complaining of any nipple discharge or skin changes. presented at tumor board on 05-19-2024. The patient is scheduled for a right breast lumpectomy with sentinel node biopsy. Oncotype will be done on the specimen she is recommended for radiation therapy and endocrine therapy review of results of oncotype test done; it was 14 and no chemotherapy will be recommended Patient on 06-23-25 underwent a right breast lumpectomy and SNB; margins close but (-), 0/2 nodes involved. Lesion 1.3 cm IDC. oncotype 14 note radiation oncology 08-06-24 reviewed; finished radiation about two weeks ago; no problems related to this note medical oncology reviewed 07-30-24; will start hormone therapy soon , appointment for medical oncology next week She does have some asymmetry in the nipple areolar complex location related to the cancer treatment Caffeine: 1 cup/day nicotine: none/ stopped at 20 years used to smoke 2 PPD 3 years chocolate: occasional BCP: < 5 years hormone: none Family History: father: stomach cancer Hormonal History: menarche: 13 breast fed: yes, age at first :32 menopause: 48 Surgical History: gallbladder brain surgery as a baby Medical History: diabetes Social History: smoke: stoped at 20 smoked 2 packs/day alcohol: stopped at ww drugs: none Review of Systems - Constitutional Denies fever, Denies weight loss - EENT Eyes: denies blurred vision Ears: deny: decreased hearing, tinnitus Ears, nose, mouth and throat: Denies dysphagia - Breasts bilateral: as per HPI - Cardiovascular Denies chest pain, Denies shortness of breath - Respiratory Reports as per HPI - Gastrointestinal Reports as per HPI, Reports diarrhea - Genitourinary Genitourinary: Denies dysuria, Denies hematuria Menstruation: Reports postmenopausal - Musculoskeletal Reports as per HPI - Integumentary Denies rash, Denies unusual bruising - Neurological Reports as per HPI, Denies headaches, Denies syncope - Psychiatric Reports as per HPI - Endocrine Endocrine Comment(s): diabetes Reports as per HPI - Hematologic/Lymphatic Denies easy bleeding, Denies easy bruising Hematologic/Lymphatic Comment(s): takes baby aspirin - Allergic/Immunologic Reports as per HPI Past Medical History Past Medical History: Diabetes Mellitus, Hyperlipidemia, Hypertension Additional Past Medical History / Comment(s): menigitis History of Any Multi-Drug Resistant Organisms: None Reported Past Surgical History: Cholecystectomy Past Anesthesia/Blood Transfusion Reactions: No Reported Reaction Additional Past Anesthesia/Blood Transfusion Reaction / Comm: FIRST ANESTHETIC Past Psychological History: No Psychological Hx Reported Smoking Status: Former smoker Past Alcohol Use History: None Reported Additional Past Alcohol Use History / Comment(s): SMOKED A TEENAGER SMOKED 5 YEARS LESS THAN PACK PER WEEK Past Drug Use History: None Reported - Past Family History Mother Family Medical History: Cancer Father Family Medical History: Cancer Medications and Allergies Home Medications Medication Instructions Recorded Confirmed Type Calcium Carbonate [Calcium] 600 mg PO DAILY 10/02/17 05/14/24 History Cholecalciferol [Vitamin D3] 1,000 unit PO DAILY 10/02/17 05/14/24 History Insulin Detemir [Levemir Flextouch] 62 units SQ HS 10/02/17 05/14/24 History Multivitamins, Thera [Multivitamin 1 tab PO DAILY 10/02/17 05/14/24 History (formulary)] Simvastatin [Zocor] 40 mg PO DAILY 10/02/17 05/14/24 History lisinopriL [Zestril] 5 mg PO DAILY 10/02/17 05/14/24 History Aspirin [[place] Aspirin EC] 81 mg PO DAILY 04/22/24 05/14/24 History Allergies Allergy/AdvReac Type Severity Reaction Status Date / Time No Known Allergies Allergy Verified 05/14/24 07:36 Objective - Constitutional General appearance: Present: cooperative - EENT Eyes: Present: EOMI ENT: Present: hearing grossly normal - Neck Neck: Present: normal ROM - Respiratory Respiratory: bilateral: CTA - Cardiovascular Rhythm: regular Heart sounds: normal: S1, S2 - Gastrointestinal General gastrointestinal: Present: soft - Integumentary Integumentary: Present: normal turgor - Musculoskeletal Musculoskeletal: Present: gait normal - Psychiatric Psychiatric: Present: A&O x's 3, appropriate affect, intact judgment & insight - Additional findings Additional findings: breast Exam: BRA: 38C; breast related to cancer treatment grade 1 ptosis right, grade 2/3 ptosis left Inspection: grade 1 ptosis right, grade 2/3 ptosis left Palpation: Right breast: Multi positional exam dense breast tissue, status post surgical and radiation changes Right axilla: No adenopathy of concern Left breast: Multi positional exam no dominant masses or nodules of concern Left axilla: No adenopathy of concern Assessment and Plan Assessment: Impression: right breast IDC status post lumpectomy and SNB note medical oncology reviewed note radiation oncology reviewed oncotype testing reviewed and discussed with the patient and her Plan: follow up with medical and radiation oncology follow up here in 4 months bilateral mammogram in March 2025 with appointment at that time CC: Dr. Ross
== END ==
LOC: WWCWWP 07:53
PROVIDERS: ATTEND Surgery
DX: D05.11 Intraductal carcinoma in situ of right breast (principal); Z87.891 Personal history of nicotine dependence

== ENCOUNTER → 2024-12-16 | Outpatient (CLI) | payer MEDICARE, OTHER ==
--- NOTE | 2024-12-16 09:28 | BD ---
EXAMINATION TYPE: Axial Bone Density DATE OF EXAM: 12/16/2024 CLINICAL HISTORY: 69 years old Female. ICD-10 CODE: M81.0 AGE-RELATED OSTEOPOROSIS W/O CURRENT PATHO LO , Additional History: Height: 60 Weight: 124.3 FRAX RISK QUESTIONS: Alcohol (3 or more units per day): no Family History (Parent hip fracture): no Glucocorticoids (More than 3mos): no (Ex: prednisone, prednisolone, methylprednisolone, dexamethasone, and hydrocortisone). History of Fracture in Adulthood: lower leg Secondary Osteoporosis: 1. Type 1 Diabetes: yes 2. Hyperthyroidism: no 3. Menopause before 45: no 4. Malnutrition: no 5. Chronic liver disease: no Rheumatoid Arthritis: no Current Tobacco Use: no RISK FACTORS HISTORY OF: Hip Fracture (Right/Left): no Spine Fracture: no History of Wrist Fracture: no Surgery to Spine/Hip(right/left)/Wrist (right/left): no MEDICATIONS: Thyroid Medications: no Osteoporosis Medications: no Breast Ca. with radiation EXAM MEASUREMENTS: Bone mineral densitometry was performed using the [employer] System. Bone mineral density as measured about the Lumbar spine is: ----- L1-L4(G/cm2): 0.933 T Score Values are as follows: ----- L1: -2.0 ----- L2: -2.8 ----- L3: -1.9 ----- L4: -1.8 ----- L1-L4: -2.14 Z Score Values are as follows: ----- L1: -0.1 ----- L2: -0.8 ----- L3: 0.1 ----- L4: 0.2 ----- L1-L4: -0.1 Bone mineral density has: decreased -9.0 % since study of: 09/07/2020 Bone mineral density about the R hip (g/cm2): 0.830 Bone mineral density about the L hip (g/cm2): 0.877 T Score values are as follows: -----R Neck: -2.0 -----L Neck: -1.2 -----R Total: -1.4 -----L Total: -1.0 Z Score values are as follows: -----R Neck: -0.1 -----L Neck: 0.8 -----R Total: 0.3 -----L Total: 0.7 Bone mineral density has: decreased -1.6 % since study of: 09/07/2020 FRAX%s: The graph provided illustrates a 11.0 % chance for a major osteoporotic fx and a 2.2% chance for the hips probability for fx in 10 years time. IMPRESSION: Osteopenia (T Score between -2.5 and -1) remains present. There is slightly increased risk of fracture and the patient may be considered for treatment. Re-Screen 2-5 years. NOTE: T-SCORE=SD OF THE YOUNG ADULT MEAN. [facility], , 12/16/2024 9:26 AM
== END | disposition home or self-care (01) ==
LOC: RADBDWWP 08:35
PROVIDERS: ATTEND Internal Medicine
DX: M81.0 Age-related osteoporosis without current pathological fracture (principal); M85.89 Other specified disorders of bone density and structure, multiple sites
CPT/HCPCS: 77080